=== PATIENT | female | born 1935 | race Caucasian/White ===

== ENCOUNTER 2020-11-27 07:50 | Inpatient (IN) ==
[2020-11-27] MEDS ORDERED: 0.9 % SODIUM CHLORIDE 1,000 ML IV ONE (10:32)
[2020-11-27] MEDS ORDERED: LACTATED RINGERS 1,000 ML IV ONE (10:59)
--- NOTE | 2020-11-27 11:05 | Emergency Department Note ---
HPI General Chief complaint: Fall Stated complaint: low back pain, fall 5 days ago, dysuria Time Seen by Provider: 11/27/20 07:56 Source: patient and EMS Mode of arrival: EMS Limitations: no limitations History of Present Illness HPI Narrative: Narrative: Patient is a pleasant 85-year-old female who presents complaint of low back pain and dysuria. She was seen 2 to 3 weeks ago for a fall and had noted multiple ezra mbar compression fractures. She noted that she was out in the yard was trying to pull the hose to water the lawn and she stepped on an irregularity on the ground and did fall again a few days ago. She denied any head injury. She is complaint of pain down in the low back sacrum region. She also has some discomfort with urination. She further relates that in the past 5 days she has been with decreased appetite and has not had very much in the way to eat. She notes it is more difficult for her getting up and about and has chronic joint achiness in her legs. She has not had any fever cough. She has not noted any definite blood in the urine. Degree of discomfort is reported as moderate. Worse with movement. Worse with urination Related Data Home Medications Medication Instructions Recorded Confirmed cholecalciferol (vitamin D3) 1,000 mg PO QDAY 11/19/18 11/27/20 omeprazole magnesium 20 mg 20 mg PO QDAY PRN 10/11/20 11/27/20 tablet,delayed release brimonidine 1 drp OPHTHALMIC (EYE) BID 11/27/20 11/27/20 calcium 1,200 mg PO QDAY 11/27/20 11/27/20 latanoprost 1 drp OPHTHALMIC (EYE) QDAY 11/27/20 11/27/20 lisinopril 40 mg PO DAILY 11/27/20 11/27/20 mirtazapine 7.5 mg PO QHS 11/27/20 11/27/20 timolol maleate 1 drp OPHTHALMIC (EYE) BID 11/27/20 11/27/20 Allergies Allergy/AdvReac Type Severity Reaction Status Date / Time nitrofurantoin Allergy Mild RASH Verified 11/27/20 19:20 [From MACROBID] Sulfa (Sulfonamide Allergy Unknown UNKNOWN Verified 11/27/20 19:20 Antibiotics) [SULFA (SULFONAMIDE ANTIBIOTICS)] Review of Systems ROS ROS Narrative: Narrative: A 10 system review of systems was performed and found to be negative except as outlined above. [facility] Narrative Patient History Narrative: Narrative: Medical/Surgical/Family History All Active Problems (Updated 11/28/20 @ 09:10 by Sterling Melendez MD) Compression fracture of body of thoracic vertebra (Acute) Compression fracture of lumbar vertebrae, non-traumatic (Acute) Closed pelvic fracture (Acute) CAD (coronary artery disease) (Acute) Hypertension (Acute) Dysphasia (Acute) Immunization deficiency (Acute) Urinary tract infection (Acute) Inferior pubic ramus fracture (Acute) Costochondral chest pain (Chronic) Costochondral joint sprain (Chronic) Closed left hip fracture (Chronic) Upper extremity weakness (Chronic) Scapular dyskinesis (Chronic) Rib fracture (Chronic) Acute cystitis (Chronic) Carotid bruit (Chronic) Chest wall contusion (Chronic) Essential (primary) hypertension (Chronic) GERD without esophagitis (Chronic) Glaucoma (Chronic) Hyperlipidemia (Chronic) 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) Osteoporosis (Chronic) Compression fracture of lumbar vertebra (Chronic) Allergic rhinitis (Chronic) Aortic valve stenosis (Chronic) Aortic valve regurgitation (Chronic) Bladder infection (Chronic) Pleural effusion (Chronic) Urinary frequency (Chronic) Medical History Acute cystitis Allergic rhinitis Aortic valve regurgitation Aortic valve stenosis Bladder infection CAD (coronary artery disease) Carotid bruit Chest wall contusion Compression fracture of lumbar vertebra Dysphasia Essential (primary) hypertension GERD without esophagitis Glaucoma Hyperlipidemia Hypertension Immunization deficiency Inferior pubic ramus fracture Macular degeneration of both eyes Nonrheumatic aortic valve insufficiency Osteoporosis Pleural effusion Urinary tract infection Surgical History History of appendectomy History of bladder surgery History of cataract surgery History of colonoscopy History of esophagogastroduodenoscopy (EGD) History of hysterectomy Family History Brother Alcoholism Son Alcoholism Son Alcoholism Mother , age 85 Heart disease Sister Myocardial infarction Father Social History Smoking Status: Former smoker Alcohol Intake Frequency: does not drink Exam Narrative Narrative: Narrative: General: Thin frail appearing elderly woman who is pleasant and interactive. HEENT: NCAT, PERRL, Oral pharynx with dry mucus membranes. No pharyngeal erythema. No conjunctival pallor Neck: Supple, No lymphadenopathy Chest: Stable, increased thoracic kyphosis Heart: Regular rate and rhythm without murmur Lungs: Clear to auscultation bilaterally Abdomen: Soft, nondistended, nontender, scaphoid. There is right suprapubic tenderness to palpation. : No bladder distention Back: Evidence of prior compression fractures with the kyphosis but also some areas of step-off related likely to prior fractures. She has no midline spine t enderness to palpation., No CVA tenderness to palpation. Skin: No rash or lesion Extremity: Neuro of the hands consistent with arthritis without focal area of injury. She is with some likely chronic arthritis in the left knee but is able to mobilize it appropriately. She is lying with her left hip somewhat internally rotated but demonstrates appropriate movement without discomfort. Pelvis is noted with some bruising over the right pubis area and likely some dependent drainage of ecchymotic fluid into the right labia area without evidence of direct trauma to this area. Neurologic: Moves all extremities in appropriate coordinated fashion. No focal neurologic deficit. General Limitations: no limitations Course Vital Signs Vital signs: Vital Signs Temperature 97.5 F 11/27/20 07:51 Pulse Rate 68 11/27/20 07:51 Respiratory Rate 20 11/27/20 07:51 Blood Pressure 100/69 11/27/20 07:51 Pulse Oximetry (%) 95 11/27/20 07:51 Temperature 98.0 F 11/28/20 07:19 Pulse Rate 74 11/28/20 07:19 Respiratory Rate 16 11/28/20 07:19 Blood Pressure 126/68 11/28/20 07:19 Pulse Oximetry (%) 95 11/28/20 07:19 [facility] Narrative Medical decision making narrative: Narrative: Patient is with pelvis pain as well as the previously noted spine fractures. CT of the pelvis today unfortunately did show further pelvic fractures involving the right superior and and inferior pubic ramus consistent with her noted bruising on exam. Patient is with deconditioning as well as poor p.o. fluid intake. She was with noted hyponatremia. I feel that she is in need of further rehabilitation care to avoid further falls and for mobilization after her pelvis fracture. I have consulted the hospitalist service who is currently agreed for further admission and care of patient. Lab Data Result diagrams: 11/27/20 10:24 11/28/20 05:43 Labs: Lab Results 11/27/20 11/27/20 11/27/20 Range/Units 10:24 10:24 10:24 WBC 8.8 (4.5-11.0) K/mcL RBC 3.56 L (4.00-5.20) M/mcL Hgb 11.4 L (12.0-15.0) g/dL Hct 32.1 L (36.0-48.0) % POC Hct (36-48) % MCV 90.2 (80.0-100.0) fL MCH 32.0 (26.0-34.0) pg MCHC 35.5 (31.0-36.0) g/dL RDW 12.5 (11.5-14.5) % Plt Count 281 (140-440) K/mcL MPV 10.2 (7.4-10.4) fL Neut % (Auto) 64.9 (38.0-78.0) % Lymph % (Auto) 20.6 (15.0-49.0) % Norton % (Auto) 13.7 H (1.0-12.0) % Eos % (Auto) 0.6 (0.0-7.0) % Baso % (Auto) 0.2 (0.0-2.0) % Lymph # (Auto) 1.80 (1.50-4.80) K/mcL Norton # (Auto) 1.20 H (0.10-0.90) K/mcL Eos # (Auto) 0.05 (0.00-0.70) K/mcL Baso # (Auto) 0.02 (0.00-0.20) K/mcL Absolute Neutrophils 5.68 (1.80-8.00) K/mcL VBG Lactic Acid (0.5-2.0) mmol/L POC Sodium (133-145) mEq/L Sodium 124 L (133-145) mmol/L POC Potassium (3.3-5.1) mEql/L Potassium 4.0 (3.3-5.1) mmol/L POC Chloride (96-108) mEq/L Chloride 91 L (96-108) mmol/L Carbon Dioxide 20 L (22-30) mmol/L POC Total CO2 (22-30) mmol/L Anion Gap 13.0 (8.0-16.0) POC BUN (6-20) mg/dL BUN 18 (8-23) mg/dL Creatinine 0.6 (0.6-1.1) mg/dL POC Creatinine (0.6-1.2) mg/dL GFR Calculation 83 Glucose 84 (70-105) mg/dL POC Glucose (70-105) mg/dL Osmolality (280-300) mOSM/kg Uric Acid (2.5-8.0) mg/dL Calcium 8.9 (8.6-10.4) mg/dL POC WB Ioniz Calcium (1.16-1.32) mmEq/L Total Bilirubin 0.9 (0.1-1.0) mg/dL AST 20 (<32) U/L ALT 9 (<40) U/L Alkaline Phosphatase 137 H (39-117) U/L Troponin T 0.03 H (<0.03) ng/mL Total Protein 5.9 (5.9-8.4) gm/dL Albumin 3.3 (3.2-5.2) gm/dL Globulin 2.6 (2.2-3.7) gm/dL Albumin/Globulin Ratio 1.3 (1.0-2.3) Lipase 24 (7-60) U/L Urine Color Urine Appearance (Clear) Urine pH (5.0-9.0) Ur Specific [place] (1.000-1.035) Urine Protein (Negative) mg/dL Urine Glucose (UA) (Negative) mg/dL Urine Ketones (Negative) mg/dL Urine Occult Blood (Negative) mg/dL Urine Nitrate (Negative) Urine Bilirubin (Negative) mg/dL Urine Urobilinogen mg/dL Ur Leukocyte Esterase (Negative) /ug Urine RBC (0-3) /hpf Urine WBC (0-4) /hpf Ur Squamous Epith Cells (0-4) /hpf Amorphous Crystals (None) /hpf Urine Bacteria (0) /hpf Ur Culture Indicated? Urine Osmolality (80-1000) mOSM/kg Ur Random Creatinine (28.0-217.0) mg/dL Ur Random Sodium mmol/L 11/27/20 11/27/20 11/27/20 Range/Units 10:24 11:21 12:05 WBC (4.5-11.0) K/mcL RBC (4.00-5.20) M/mcL Hgb (12.0-15.0) g/dL Hct (36.0-48.0) % POC Hct (36-48) % MCV (80.0-100.0) fL MCH (26.0-34.0) pg MCHC (31.0-36.0) g/dL RDW (11.5-14.5) % Plt Count (140-440) K/mcL MPV (7.4-10.4) fL Neut % (Auto) (38.0-78.0) % Lymph % (Auto) (15.0-49.0) % Norton % (Auto) (1.0-12.0) % Eos % (Auto) (0.0-7.0) % Baso % (Auto) (0.0-2.0) % Lymph # (Auto) (1.50-4.80) K/mcL Norton # (Auto) (0.10-0.90) K/mcL Eos # (Auto) (0.00-0.70) K/mcL Baso # (Auto) (0.00-0.20) K/mcL Absolute Neutrophils (1.80-8.00) K/mcL VBG Lactic Acid 0.9 (0.5-2.0) mmol/L POC Sodium (133-145) mEq/L Sodium (133-145) mmol/L POC Potassium (3.3-5.1) mEql/L Potassium (3.3-5.1) mmol/L POC Chloride (96-108) mEq/L Chloride (96-108) mmol/L Carbon Dioxide (22-30) mmol/L POC Total CO2 (22-30) mmol/L Anion Gap (8.0-16.0) POC BUN (6-20) mg/dL BUN (8-23) mg/dL Creatinine (0.6-1.1) mg/dL POC Creatinine (0.6-1.2) mg/dL GFR Calculation Glucose (70-105) mg/dL POC Glucose (70-105) mg/dL Osmolality 267 L (280-300) mOSM/kg Uric Acid 3.5 (2.5-8.0) mg/dL Calcium (8.6-10.4) mg/dL POC WB Ioniz Calcium (1.16-1.32) mmEq/L Total Bilirubin (0.1-1.0) mg/dL AST (<32) U/L ALT (<40) U/L Alkaline Phosphatase (39-117) U/L Troponin T (<0.03) ng/mL Total Protein (5.9-8.4) gm/dL Albumin (3.2-5.2) gm/dL Globulin (2.2-3.7) gm/dL Albumin/Globulin Ratio (1.0-2.3) Lipase (7-60) U/L Urine Color Yellow Urine Appearance Hazy A (Clear) Urine pH 6.0 (5.0-9.0) Ur Specific [place] 1.005 (1.000-1.035) Urine Protein Negative (Negative) mg/dL Urine Glucose (UA) Negative (Negative) mg/dL Urine Ketones Negative (Negative) mg/dL Urine Occult Blood 0.03 (Negative) mg/dL Urine Nitrate Negative (Negative) Urine Bilirubin Negative (Negative) mg/dL Urine Urobilinogen Negative mg/dL Ur Leukocyte Esterase 25 A (Negative) /ug Urine RBC 2 (0-3) /hpf Urine WBC 4 (0-4) /hpf Ur Squamous Epith Cells 0 (0-4) /hpf Amorphous Crystals Few A (None) /hpf Urine Bacteria Few A (0) /hpf Ur Culture Indicated? Yes Urine Osmolality (80-1000) mOSM/kg Ur Random Creatinine (28.0-217.0) mg/dL Ur Random Sodium mmol/L 11/27/20 11/27/20 11/27/20 Range/Units 12:05 12:05 12:05 WBC (4.5-11.0) K/mcL RBC (4.00-5.20) M/mcL Hgb (12.0-15.0) g/dL Hct (36.0-48.0) % POC Hct (36-48) % MCV (80.0-100.0) fL MCH (26.0-34.0) pg MCHC (31.0-36.0) g/dL RDW (11.5-14.5) % Plt Count (140-440) K/mcL MPV (7.4-10.4) fL Neut % (Auto) (38.0-78.0) % Lymph % (Auto) (15.0-49.0) % Norton % (Auto) (1.0-12.0) % Eos % (Auto) (0.0-7.0) % Baso % (Auto) (0.0-2.0) % Lymph # (Auto) (1.50-4.80) K/mcL Norton # (Auto) (0.10-0.90) K/mcL Eos # (Auto) (0.00-0.70) K/mcL Baso # (Auto) (0.00-0.20) K/mcL Absolute Neutrophils (1.80-8.00) K/mcL VBG Lactic Acid (0.5-2.0) mmol/L POC Sodium (133-145) mEq/L Sodium (133-145) mmol/L POC Potassium (3.3-5.1) mEql/L Potassium (3.3-5.1) mmol/L POC Chloride (96-108) mEq/L Chloride (96-108) mmol/L Carbon Dioxide (22-30) mmol/L POC Total CO2 (22-30) mmol/L Anion Gap (8.0-16.0) POC BUN (6-20) mg/dL BUN (8-23) mg/dL Creatinine (0.6-1.1) mg/dL POC Creatinine (0.6-1.2) mg/dL GFR Calculation Glucose (70-105) mg/dL POC Glucose (70-105) mg/dL Osmolality (280-300) mOSM/kg Uric Acid (2.5-8.0) mg/dL Calcium (8.6-10.4) mg/dL POC WB Ioniz Calcium (1.16-1.32) mmEq/L Total Bilirubin (0.1-1.0) mg/dL AST (<32) U/L ALT (<40) U/L Alkaline Phosphatase (39-117) U/L Troponin T (<0.03) ng/mL Total Protein (5.9-8.4) gm/dL Albumin (3.2-5.2) gm/dL Globulin (2.2-3.7) gm/dL Albumin/Globulin Ratio (1.0-2.3) Lipase (7-60) U/L Urine Color Urine Appearance (Clear) Urine pH (5.0-9.0) Ur Specific [place] (1.000-1.035) Urine Protein (Negative) mg/dL Urine Glucose (UA) (Negative) mg/dL Urine Ketones (Negative) mg/dL Urine Occult Blood (Negative) mg/dL Urine Nitrate (Negative) Urine Bilirubin (Negative) mg/dL Urine Urobilinogen mg/dL Ur Leukocyte Esterase (Negative) /ug Urine RBC (0-3) /hpf Urine WBC (0-4) /hpf Ur Squamous Epith Cells (0-4) /hpf Amorphous Crystals (None) /hpf Urine Bacteria (0) /hpf Ur Culture Indicated? Urine Osmolality 182 (80-1000) mOSM/kg Ur Random Creatinine 23.0 L (28.0-217.0) mg/dL Ur Random Sodium 12 mmol/L 11/27/20 11/27/20 Range/Units 13:51 17:06 WBC (4.5-11.0) K/mcL RBC (4.00-5.20) M/mcL Hgb (12.0-15.0) g/dL Hct (36.0-48.0) % POC Hct 33 L (36-48) % MCV (80.0-100.0) fL MCH (26.0-34.0) pg MCHC (31.0-36.0) g/dL RDW (11.5-14.5) % Plt Count (140-440) K/mcL MPV (7.4-10.4) fL Neut % (Auto) (38.0-78.0) % Lymph % (Auto) (15.0-49.0) % Norton % (Auto) (1.0-12.0) % Eos % (Auto) (0.0-7.0) % Baso % (Auto) (0.0-2.0) % Lymph # (Auto) (1.50-4.80) K/mcL Norton # (Auto) (0.10-0.90) K/mcL Eos # (Auto) (0.00-0.70) K/mcL Baso # (Auto) (0.00-0.20) K/mcL Absolute Neutrophils (1.80-8.00) K/mcL VBG Lactic Acid (0.5-2.0) mmol/L POC Sodium 131 L (133-145) mEq/L Sodium 127 L (133-145) mmol/L POC Potassium 3.6 (3.3-5.1) mEql/L Potassium 3.6 (3.3-5.1) mmol/L POC Chloride 99 (96-108) mEq/L Chloride 97 (96-108) mmol/L Carbon Dioxide 22 (22-30) mmol/L POC Total CO2 21 L (22-30) mmol/L Anion Gap 8.0 (8.0-16.0) POC BUN 14 (6-20) mg/dL BUN 14 (8-23) mg/dL Creatinine 0.5 L (0.6-1.1) mg/dL POC Creatinine 0.5 L (0.6-1.2) mg/dL GFR Calculation 88 Glucose 82 (70-105) mg/dL POC Glucose 84 (70-105) mg/dL Osmolality (280-300) mOSM/kg Uric Acid (2.5-8.0) mg/dL Calcium 8.6 (8.6-10.4) mg/dL POC WB Ioniz Calcium 1.20 (1.16-1.32) mmEq/L Total Bilirubin (0.1-1.0) mg/dL AST (<32) U/L ALT (<40) U/L Alkaline Phosphatase (39-117) U/L Troponin T 0.03 H (<0.03) ng/mL Total Protein (5.9-8.4) gm/dL Albumin (3.2-5.2) gm/dL Globulin (2.2-3.7) gm/dL Albumin/Globulin Ratio (1.0-2.3) Lipase (7-60) U/L Urine Color Urine Appearance (Clear) Urine pH (5.0-9.0) Ur Specific [place] (1.000-1.035) Urine Protein (Negative) mg/dL Urine Glucose (UA) (Negative) mg/dL Urine Ketones (Negative) mg/dL Urine Occult Blood (Negative) mg/dL Urine Nitrate (Negative) Urine Bilirubin (Negative) mg/dL Urine Urobilinogen mg/dL Ur Leukocyte Esterase (Negative) /ug Urine RBC (0-3) /hpf Urine WBC (0-4) /hpf Ur Squamous Epith Cells (0-4) /hpf Amorphous Crystals (None) /hpf Urine Bacteria (0) /hpf Ur Culture Indicated? Urine Osmolality (80-1000) mOSM/kg Ur Random Creatinine (28.0-217.0) mg/dL Ur Random Sodium mmol/L ED POC Tests ED POC Tests: MARII - SARS Antigen Negative Discharge Plan Patient/Caregiver Discharge Instructions Pt seen by PERSONNEL GENERALIST MANAGER/PA only: No Clinical Impression: Closed pelvic fracture Patient Disposition: Xfer As Outpt/Obs ([facility]) Condition: Fair Discharge Date/Time: 11/27/20 17:40
[2020-11-27 11:55] LABS: ALT/SGPT 9 U/L (<40); AST/SGOT 20 U/L (<32); Albumin 3.3 gm/dL (3.2-5.2); Albumin/Globulin Ratio 1.3 (1.0-2.3); Alkaline Phosphatase 137 U/L (39-117); Bilirubin,Total 0.9 mg/dL (0.1-1.0); Blood Urea Nitrogen 18 mg/dL (8-23); Calcium 8.9 mg/dL (8.6-10.4); Carbon Dioxide 20 mmol/L (22-30); Chloride 91 mmol/L (96-108); Globulin 2.6 gm/dL (2.2-3.7); Glomerular Filtration Rate 83; Glucose 84 mg/dL (70-105)
[2020-11-27 11:57] LABS: Basophils # (Auto) 0.02 K/mcL (0.00-0.20); Basophils % (Auto) 0.2 % (0.0-2.0); Eosinophils # (Auto) 0.05 K/mcL (0.00-0.70); Eosinophils % (Auto) 0.6 % (0.0-7.0); Hematocrit 32.1 % (36.0-48.0); Hemoglobin 11.4 g/dL (12.0-15.0); Lymphocytes % (Auto) 20.6 % (15.0-49.0); Mean Cell Volume 90.2 fL (80.0-100.0); Mean Corpuscular HGB Conc 35.5 g/dL (31.0-36.0); Mean Platelet Volume 10.2 fL (7.4-10.4); Monocytes % (Auto) 13.7 % (1.0-12.0); Neutrophils % (Auto) 64.9 % (38.0-78.0); Platelet Count 281 K/mcL (140-440); RBC 3.56 M/mcL (4.00-5.20); Red Cell Distribution Width 12.5 % (11.5-14.5); WBC 8.8 K/mcL (4.5-11.0)
--- NOTE | 2020-11-27 12:13 | Cat Scan Report ---
CLINICAL INFORMATION: Progressive back pain. The patient fell 5 days prior. Dysuria COMPARISON: Axial and sagittal reformatted images of the lumbar spine from a abdomen and pelvic CT 1.5 years ago 06/01/2019. TECHNIQUE: 0.625 mm helical slices were obtained from the mid T12 through mid S2 vertebral bodies. Following reconstruction, 2.5 mm coronal, sagittal, and axial reformations (angle to the disc spaces) were processed. Exam was reviewed at bone and soft tissue windows.The exam was performed using radiation dose optimization techniques including, but not limited to, automated exposure control, adjustment of the mA and/or kV according to patient size and use of iterative reconstruction technique. FINDINGS: Mild T11, severe T12, moderate L1 L5 compression fractures are chronic unchanged. No acute fractures appreciated. Grade 1 L5-S1 spondylolisthesis with 8 mm of L5 anterior subluxation due to degenerative facet disease is stable. Approximately 5 mm T12 retrolisthesis also noted. Solid fusion of the left L3-4 and subtotal fusion of the right L3-4 facet noted. Moderate degenerative facet disease L3-4 L4-5 and L5-S1. Soft tissues significant for marked urinary bladder distention. At T11-T12, T12-L1, L1-2, L2-3 and L3-4, there is minimal broad disc protrusions which only minimally impinge the anterior thecal sac. At L4-5, moderate broad disc protrusion and mild facet arthropathy result in mild central canal and IV foraminal narrowing. No definite root impingement. At L5-S1, large broad disc protrusion, grade 1 spondylolisthesis and facet arthropathy result in severe bilateral IV foraminal narrowing. This is unchanged since 2019. IMPRESSION: 1. Chronic mild T11, severe T12, moderate L1 and moderate L5 compression fractures-stable. No acute fractures 2. L5-S1: Grade 1 spondylolisthesis dueto degenerative facet disease, large broad disc protrusion and facet arthropathy resulting in moderate central canal and severe bilateral IV foraminal narrowing. There is impingement of the exiting L5 nerve roots-no change 3. Marked urinary bladder distention Interpreted and Authenticated by: Clay Marquez 11/27/20
--- NOTE | 2020-11-27 12:28 | Cat Scan Report ---
CLINICAL INFORMATION: Trauma COMPARISON: Abdomen and pelvic CT 11/29/2020 and 06/01/2019. TECHNIQUE: 0.625 mm helical slices were obtained from the mid L4 through the subtrochanteric regions. Following reconstruction, 2.5 mm sagittal, coronal and axial reformations were processed. The exam was reviewed in bone and soft tissue windows. The exam was performed using radiation dose optimization techniques including, but not limited to, automated exposure control, adjustment of mA and/or kV according to patient size and use of iterative reconstruction technique. FINDINGS: Bone windows show nondisplaced oblique fracture of the lateral right pubic ramus and a comminuted minimally displaced fracture of the medial right pubic ramus extending into the pubic symphysis. There is also a mildly displaced oblique fracture of the right inferior pubic ramus. A healing fracture of the left intervertebral foramen is also noted which is nondisplaced.. Gamma nail transfixes an old left intertrochanteric fracture which is solidly unified with exception of a tip of the greater trochanter which is subtotally unified. Both SI and hip joints normal with alignment without arthritic change. There is mild edema in the right obturator musculature adjacent to the pubic fractures compatible posttraumatic contusion. Urinary bladder is unremarkable. Hysterectomy changes noted. Visualized small large bowel are normal. There is no free air or free fluid. IMPRESSION: 1. Nondisplaced fracture lateral right periareolar pubic ramus, minimally displaced comminuted fracture medial right inferior pubic ramus extending to the pubic symphysis. Comminuted mildly displaced fracture inferior right pubic ramus. Healing fracture inferior left pubic ramus. Mild contusion in the adjacent pelvic musculature through the obturator muscle. 2. ORIF old left intertrochanteric fracture which is totally unified exception of a subtotally unified greater trochanteric fragment. 3. Moderate urinary bladder distention. Interpreted and Authenticated by: Clay Marquez 11/27/20
[2020-11-27 13:19] LABS: Appearance,Urine HAZY (Clear); Bacteria,Urine FEW /hpf (0); Bilirubin,Urine Negative (Negative); Color,Urine YELLOW; Culture Indicated,Urine Yes; Glucose,Urine (UA) Negative (Negative); Ketones,Urine Negative (Negative); Leukocyte Esterase,Urine 25 /ug (Negative); Nitrate,Urine Negative (Negative); Protein,Urine Negative (Negative); Specific Gravity,Urine 1.005 (1.000-1.035); Urine Amorphous Crystals FEW /hpf; Urine Blood 0.03 mg/dL (Negative); Urine RBC 2 /hpf (0-3); Urine Squamous Epithelial Cell 0 /hpf (0-4); Urine WBC 4 /hpf (0-4); Urobilinogen,Urine Negative
--- NOTE | 2020-11-27 16:20 | Internal Med History&Physical ---
HPI History of Present Illness Patient information: Note initiated : 11/27/20 at 4:15 pm Service Date, if different from initiated Date: [] Patient: Rebeca Mcknight a 85 y/o F admitted on for Low Back Pain, Fall 5 Days Ago, Dysuria. Chief Complaint: [] History of present illness: Ms. Mcknight is a 85 year old F Who fell about 3 weeks ago suffering a spinal compression fracture. And then about 5 days ago while working in her yard the hose she fell again. Since falling she has had some increased weakness. increased pain in her back and pelvis her son noticed that she did not look comfortable and did not seem to be doing well and recommended to go in the ED. In the ED she was evaluated and had a pelvic CT which showed several rami fractures. Lumbar spine with compression fractures old. Patient states she had dysuria prior to her fall 5 days ago but has not had any that since then. UA in the ED is pretty bland and unimpressive. No chest pain shortness of breath. Her sodium was found to be 124. She had a urinary retention in ED but sub sequently was able to urinate on her own. Review of Systems: Pertinent positives as above. Denies headache/fever/chills/nausea/vomiting/chest or abdominal pain/cough/dyspnea/diarrhea. Remaining 10 point review of system reviewed negative PFSH PFSH All Active Problems (Updated 11/11/20 @ 12:54 by Damian Dolan MD) Compression fracture of body of thoracic vertebra (Acute) Compression fracture of lumbar vertebrae, non-traumatic (Acute) CAD (coronary artery disease) (Acute) Hypertension (Acute) Dysphasia (Acute) Immunization deficiency (Acute) Urinary tract infection (Acute) Inferior pubic ramus fracture (Acute) Costochondral chest pain (Chronic) Costochondral joint sprain (Chronic) Closed left hip fracture (Chronic) Upper extremity weakness (Chronic) Scapular dyskinesis (Chronic) Rib fracture (Chronic) Acute cystitis (Chronic) Carotid bruit (Chronic) Chest wall contusion (Chronic) Essential (primary) hypertension (Chronic) GERD without esophagitis (Chronic) Glaucoma (Chronic) Hyperlipidemia (Chronic) 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) Osteoporosis (Chronic) Compression fracture of lumbar vertebra (Chronic) Allergic rhinitis (Chronic) Aortic valve stenosis (Chronic) Aortic valve regurgitation (Chronic) Bladder infection (Chronic) Pleural effusion (Chronic) Urinary frequency (Chronic) Medical History Acute cystitis Allergic rhinitis Aortic valve regurgitation Aortic valve stenosis Bladder infection CAD (coronary artery disease) Carotid bruit Chest wall contusion Compression fracture of lumbar vertebra Dysphasia Essential (primary) hypertension GERD without esophagitis Glaucoma Hyperlipidemia Hypertension Immunization deficiency Inferior pubic ramus fracture Macular degeneration of both eyes Nonrheumatic aortic valve insufficiency Osteoporosis Pleural effusion Urinary tract infection Surgical History History of appendectomy History of bladder surgery History of cataract surgery History of colonoscopy History of esophagogastroduodenoscopy (EGD) History of hysterectomy Family History Brother Alcoholism Son Alcoholism Son Alcoholism Mother , age 85 Heart disease Sister Myocardial infarction Father Social History alcohol intake frequency: does not drink MEDS/ALLERGIES Home Medications and Allergies Home Medications Medication Instructions Recorded Confirmed Type cholecalciferol (vitamin D3) 1,000 mg PO QDAY 11/19/18 11/27/20 History omeprazole magnesium 20 mg 20 mg PO QDAY PRN 10/11/20 11/27/20 History tablet,delayed release calcium 1,200 mg PO QDAY 11/27/20 11/27/20 History latanoprost 1 drp OPHTHALMIC (EYE) QDAY 11/27/20 11/27/20 History lisinopril 40 mg PO DAILY 11/27/20 11/27/20 History mirtazapine 7.5 mg PO QHS 11/27/20 11/27/20 History timolol maleate 1 drp OPHTHALMIC (EYE) QDAY 11/27/20 11/27/20 History Allergies Allergy/AdvReac Type Severity Reaction Status Date / Time nitrofurantoin Allergy Unknown RASH Verified 11/27/20 07:55 [From MACROBID] Sulfa (Sulfonamide Allergy Unknown UNKNOWN Verified 11/27/20 07:55 Antibiotics) [SULFA (SULFONAMIDE ANTIBIOTICS)] EXAM Constitutional Vitals: Temp Pulse Resp BP Pulse Ox 97.5 F 70 20 130/90 94 11/27/20 07:51 11/27/20 14:31 11/27/20 07:51 11/27/20 14:31 11/27/20 14:31 Exam: General: Alert, Awake, No acute Distress, frail Eyes/N/T: EOMI, PERRL, dry MM Head/Neck: neck supple, normocephalic atraumatic CV: RRR, No murmurs, normal s1/s2 Pulm: Clear b/l, no wheezing/rhonchi/rales Abd: soft, nontender, +BS x4 Ext: no clubbing/cyanosis/edema Neuro: Alert, no focal deficits, moves all extremities, CN 2-12 grossly intact, symmetrical strength b/l upper/lower, sensations intact b/l upper/lower Skin: warm/dry DATA Data Completed and Pending Labs: Labs from last 24 hours 11/27/20 11/27/20 11/27/20 13:51 12:05 11:21 WBC RBC Hgb Hct MCV MCH MCHC RDW Plt Count MPV Neut % (Auto) Lymph % (Auto) [place] % (Auto) Eos % (Auto) Baso % (Auto) Lymph # (Auto) [place] # (Auto) Eos # (Auto) Baso # (Auto) Absolute Neutrophils VBG Lactic Acid 0.9 Sodium Potassium Chloride Carbon Dioxide Anion Gap BUN Creatinine GFR Calculation Glucose Calcium Total Bilirubin AST ALT Alkaline Phosphatase Troponin T 0.03 H Total Protein Albumin Globulin Albumin/Globulin Ratio Lipase Urine Color Yellow Urine Appearance Hazy A Urine pH 6.0 Ur Specific [place] 1.005 Urine Protein Negative Urine Glucose (UA) Negative Urine Ketones Negative Urine Occult Blood 0.03 Urine Nitrate Negative Urine Bilirubin Negative Urine Urobilinogen Negative Ur Leukocyte Esterase 25 A Urine RBC 2 Urine WBC 4 Ur Squamous Epith Cells 0 Amorphous Crystals Few A Urine Bacteria Few A Ur Culture Indicated? Yes 11/27/20 11/27/20 11/27/20 10:24 10:24 10:24 WBC 8.8 RBC 3.56 L Hgb 11.4 L Hct 32.1 L MCV 90.2 MCH 32.0 MCHC 35.5 RDW 12.5 Plt Count 281 MPV 10.2 Neut % (Auto) 64.9 Lymph % (Auto) 20.6 [place] % (Auto) 13.7 H Eos % (Auto) 0.6 Baso % (Auto) 0.2 Lymph # (Auto) 1.80 [place] # (Auto) 1.20 H Eos # (Auto) 0.05 Baso # (Auto) 0.02 Absolute Neutrophils 5.68 VBG Lactic Acid Sodium 124 L Potassium 4.0 Chloride 91 L Carbon Dioxide 20 L Anion Gap 13.0 BUN 18 Creatinine 0.6 GFR Calculation 83 Glucose 84 Calcium 8.9 Total Bilirubin 0.9 AST 20 ALT 9 Alkaline Phosphatase 137 H Troponin T 0.03 H Total Protein 5.9 Albumin 3.3 Globulin 2.6 Albumin/Globulin Ratio 1.3 Lipase 24 Urine Color Urine Appearance Urine pH Ur Specific [place] Urine Protein Urine Glucose (UA) Urine Ketones Urine Occult Blood Urine Nitrate Urine Bilirubin Urine Urobilinogen Ur Leukocyte Esterase Urine RBC Urine WBC Ur Squamous Epith Cells Amorphous Crystals Urine Bacteria Ur Culture Indicated? A/P Narrative A/P Narrative: A: *Hyponatremia: *Generalized weakness/deconditioning/falling: *Recent spinal compression fractures and acute pubic rami fracture: *HTN: *GERD: P: -hyponatremia w/u -NS ivf, f/u sodium -pain control -cont home ACEI - --pt/ot -CM for placement needs -ppx: lovenox/home ppi DNR Time Spent With Patient Time: Total time spent is greater than 50% in coordination of care (as documented) at patient's floor/unit and/or counseling patient:
[2020-11-27 17:17] LABS: POC Blood Urea Nitrogen 14 mg/dL (6-20); POC CO2 21 mmol/L (22-30); POC Chloride 99 mEq/L (96-108); POC Creatinine 0.5 mg/dL (0.6-1.2); POC Glucose, Random 84 mg/dL (70-105); POC Hematocrit 33 % (36-48); POC Potassium 3.6 mEql/L (3.3-5.1); POC Sodium 131 mEq/L (133-145)
[2020-11-27 17:23] LABS: Uric Acid 3.5 mg/dL (2.5-8.0)
[2020-11-27] MEDS ORDERED: HYDROcodone/APAP 5/325MG TABLET PO PRN (17:48)
[2020-11-27] MEDS ORDERED: IPRATROPIUM/ALBUTEROL 3 ML AMPUL.NEB NEB PRN (17:48)
[2020-11-27] MEDS ORDERED: 0.9 % SODIUM CHLORIDE 1,000 ML IV SCH (17:48)
[2020-11-27] MEDS ORDERED: MAGNESIUM SULFATE 2 GM/50 ML BAG IV PRN ×2 (17:48)
[2020-11-27] MEDS ORDERED: POLYETHYLENE GLYCOL 3350 17 GM PACKET PO PRN (17:48)
[2020-11-27] MEDS ORDERED: ACETAMINOPHEN 325 MG TABLET PO PRN (17:48)
[2020-11-27] MEDS ORDERED: ONDANSETRON 4 MG/2 ML VIAL IV PRN ×2 (17:48)
[2020-11-27] MEDS ORDERED: POTASSIUM CHLORIDE 20 MEQ TABLET PO PRN ×4 (17:48)
[2020-11-27] MEDS ORDERED: diphenhydrAMINE 25 MG CAPSULE PO PRN (17:48)
[2020-11-27] MEDS ORDERED: POTASSIUM CHLORIDE 40 MEQ in DEXTROSE 5% IN WATER 500 ML IV PRN ×2 (17:48)
[2020-11-27 17:57] LABS: Blood Urea Nitrogen 14 mg/dL (8-23); Calcium 8.6 mg/dL (8.6-10.4); Carbon Dioxide 22 mmol/L (22-30); Chloride 97 mmol/L (96-108); Glomerular Filtration Rate 88; Glucose 82 mg/dL (70-105)
[2020-11-27] MEDS ORDERED: OMEPRAZOLE 20 MG CAPSULE PO PRN (17:59)
[2020-11-27] MEDS ORDERED: MELATONIN 3 MG TABLET PO SCH (21:00)
--- NOTE | 2020-11-28 08:03 | Internal Med Progress Note ---
SUBJECTIVE Subjective Patient information: Note initiated : 11/28/20 at 7:59 am Service Date, if different from initiated Date: [] Patient: Rebeca Mcknight 85 y/o F admitted on 11/27/20 for Low Back Pain, Fall 5 Days Ago, Dysuria. Chief Complaint: [] Interval history: History of present illness: Ms. Mcknight is a 85 year old F Who fell about 3 weeks ago suffering a spinal compression fracture. And then about 5 days ago while working in her yard the hose she fell again. Since falling she has had some increased weakness. increased pain in her back and pelvis her son noticed that she did not look comfortable and did not seem to be doing well and recommended to go in the ED. In the ED she was evaluated and had a pelvic CT which showed several rami fractures. Lumbar spine with compression fractures old. Patient states she had dysuria prior to her fall 5 days ago but has not had any that since then. UA in the ED is pretty bland and unimpressive. No chest pain shortness of breath. Her sodium was found to be 124. She had a urinary retention in ED but subsequently was able to urinate on her own. 11/28 No overnight event or new complaints. Sodium improving. Review of Systems: denies headache/fever/chills/nausea/vomiting/chest or abdominal pain/cough/dyspnea/diarrhea. Otherwise see above. Constitutional Vitals: Vital Signs Temp Pulse Resp BP Pulse Ox 98.0 F 74 16 126/68 95 11/28/20 07:19 11/28/20 07:19 11/28/20 07:19 11/28/20 07:19 11/28/20 07:19 Period Temp Pulse Resp BP Sys/Feng Pulse Ox Last 24 Hr 97.5 F-98.6 F 41-74 14-20 79-161/51-105 90-100 Intake and Output 11/27/20 11/28/20 11/28/20 21:59 05:59 13:59 Intake Total 1120 480 Output Total 600 500 Balance 520 -20 Weight 47.174 kg Intake & Output: Intake & Output 11/27/20 11/28/20 11/28/20 21:59 05:59 13:59 Intake Total 1120 480 Output Total 600 500 Balance 520 -20 Weight 47.174 kg Intake: IV 1000 Sodium Chloride 0.9% 1,000 ml @ 0 Wide Open IV BOLUS ONE Rx#: [id number] Lactated Ringers 1,000 ml @ 1000 Wide Open IV BOLUS ONE Rx#: [id number] Oral 120 480 Output: Void Amount 600 500 Other: Meal Dinner Percent of Meal Consumed 75% Feeding Ability Independent Urine Appearance Clear Clear Urine Color Dark Yellow Straw Urine Odor Strong Exam: General: Alert, Awake, No acute Distress, frail Eyes/N/T: EOMI, Head/Neck: neck supple, CV: RRR, No murmurs, Pulm: Clear b/l, no wheezing/rhonchi/rales Abd: soft, nontender, +BS x4 Ext: no clubbing/cyanosis/edema Neuro: Alert, no focal deficits, moves all extremities, Skin: warm/dry OBJ DATA Labs CBC & Chem 7: 11/27/20 10:24 11/28/20 05:43 Labs: Abnormal Lab Results 11/27/20 11/27/20 11/27/20 17:06 13:51 12:05 RBC Hgb Hct POC Hct 33 L [place] % (Auto) [place] # (Auto) POC Sodium 131 L Sodium 127 L Chloride Carbon Dioxide POC Total CO2 21 L Creatinine 0.5 L POC Creatinine 0.5 L Osmolality Alkaline Phosphatase Troponin T 0.03 H Urine Appearance Ur Leukocyte Esterase Amorphous Crystals Urine Bacteria Ur Random Creatinine 23.0 L 11/27/20 11/27/20 11/27/20 12:05 10:24 10:24 RBC Hgb Hct POC Hct [place] % (Auto) [place] # (Auto) POC Sodium Sodium Chloride Carbon Dioxide POC Total CO2 Creatinine POC Creatinine Osmolality 267 L Alkaline Phosphatase Troponin T 0.03 H Urine Appearance Hazy A Ur Leukocyte Esterase 25 A Amorphous Crystals Few A Urine Bacteria Few A Ur Random Creatinine 11/27/20 11/27/20 10:24 10:24 RBC 3.56 L Hgb 11.4 L Hct 32.1 L POC Hct [place] % (Auto) 13.7 H [place] # (Auto) 1.20 H POC Sodium Sodium 124 L Chloride 91 L Carbon Dioxide 20 L POC Total CO2 Creatinine POC Creatinine Osmolality Alkaline Phosphatase 137 H Troponin T Urine Appearance Ur Leukocyte Esterase Amorphous Crystals Urine Bacteria Ur Random Creatinine Meds: Medications Acetaminophen (Acetaminophen 325 Mg Tablet) 650 mg PO Q4-6HP PRN; Protocol PRN Reason: Per Pain Protocol Hydrocodone Bitart/Acetaminophen (Hydrocodone/Apap 5/325mg Tablet) 1 tab PO Q4- 6HP PRN; Protocol PRN Reason: Per Pain Protocol Albuterol/Ipratropium (Ipratropium/Albuterol 3 Ml Ampul.Neb) 3 ml NEB Q4HP PRN PRN Reason: Shortness Of Breath Diphenhydramine HCl (Diphenhydramine 25 Mg Capsule) 25 mg PO HSP PRN PRN Reason: Insomnia Enoxaparin Sodium (Enoxaparin 30 Mg/0.3 Ml Syringe) 30 mg SQ DAILY [facility] Potassium Chloride 40 meq/ (Dextrose) 520 mls @ 130 mls/hr IV UD PRN PRN Reason: Potassium < 3 Magnesium Sulfate (Magnesium Sulfate) 2 gm in 50 mls @ 50 mls/hr IV UD PRN PRN Reason: Magnesium </= 1.6 Sodium Chloride (Sodium Chloride 0.9%) 1,000 mls @ 50 mls/hr IV .Q20H [facility] Stop: 11/28/20 13:47 Last Admin: 11/27/20 18:33 Dose: 50 mls/hr Documented by: Latanoprost (Latanoprost Ophth Drops 2.5ml Bottle) 1 gtt OU QDAY [facility] Lisinopril (Lisinopril 20 Mg Tablet) 40 mg PO DAILY [facility] Melatonin (Melatonin 3 Mg Tablet) 6 mg PO QHS [facility] Last Admin: 11/27/20 21:08 Dose: 6 mg Documented by: Omeprazole (Omeprazole 20 Mg Capsule) 20 mg PO DAILYP PRN PRN Reason: Acid Reflux Ondansetron HCl (Ondansetron 4 Mg/2 Ml Vial) 4 mg IV Q4HP PRN PRN Reason: Nausea And Vomiting Polyethylene Glycol (Polyethylene Glycol 3350 17 Gm Packet) 17 gm PO DAILYP PRN PRN Reason: Constipation Potassium Chloride (Potassium Chloride 20 Meq Tablet) 40 meq PO UD PRN PRN Reason: Potssium is 3-3.5 Potassium Chloride (Potassium Chloride 20 Meq Tablet) 40 meq PO UD PRN PRN Reason: Potassium < 3 Timolol Maleate (Timolol 0.5% Ophth Drops Bottle 5ml) 1 gtt OU QDAY KINJAL A/P Narrative A/P Narrative: A: *Hyponatremia: 2/2 volme depletion -improving with NS IVF *Generalized weakness/deconditioning/falling: *Recent spinal compression fractures and acute pubic rami fracture: *HTN: *GERD: P: -NS ivf, f/u sodium -pain control -cont home ACEI - -pt/ot -CM for placement needs -ppx: lovenox/home ppi DNR Time Spent With Patient Time: Total time spent is greater than 50% in coordination of care (as documented) at patient's floor/unit and/or counseling patient: QUALITY VTE Deep Vein Thrombosis/Pulmonary Embolism Present on Admission: No
[2020-11-28 08:19] LABS: ALT/SGPT 9 U/L (<40); AST/SGOT 16 U/L (<32); Albumin 3.1 gm/dL (3.2-5.2); Albumin/Globulin Ratio 1.5 (1.0-2.3); Alkaline Phosphatase 114 U/L (39-117); Bilirubin,Direct < 0.2 mg/dL (0-0.3); Bilirubin,Total 0.6 mg/dL (0.1-1.0); Blood Urea Nitrogen 12 mg/dL (8-23); Calcium 8.3 mg/dL (8.6-10.4); Carbon Dioxide 21 mmol/L (22-30); Chloride 103 mmol/L (96-108); Globulin 2.1 gm/dL (2.2-3.7); Glomerular Filtration Rate 88; Glucose 76 mg/dL (70-105); Lactate Dehydrogenase 211 U/L (135-225); Phosphorous 2.8 mg/dL (2.5-4.5); Triglycerides 55 mg/dL (<150); Uric Acid 3.7 mg/dL (2.5-8.0)
[2020-11-28] MEDS ORDERED: ENOXAPARIN 30 MG/0.3 ML SYRINGE SQ SCH (09:00)
[2020-11-28] MEDS ORDERED: LATANOPROST OPHTH DROPS 2.5ML BOTTLE OU SCH (09:00)
[2020-11-28] MEDS ORDERED: TIMOLOL 0.5% OPHTH DROPS BOTTLE 5ML OU SCH (09:00)
[2020-11-28] MEDS ORDERED: LISINOPRIL 20 MG TABLET PO SCH (09:00)
[2020-11-28] MEDS ORDERED: LEVOFLOXACIN 250 MG TABLET PO ONE (11:43)
--- NOTE | 2020-11-28 11:47 | Discharge Summary ---
Discharge Provider Provider Patient information: Note initiated : 11/28/20 at 11:41 am Service Date, if different from initiated Date: [] Patient: Rebeca Mcknight 85 y/o F admitted on 11/27/20 for Low Back Pain, Fall 5 Days Ago, Dysuria. Chief Complaint: [] Date of admission: 11/27/20 17:43 Discharge date: 11/28/20 Primary care physician: Alfredo Gutierrez M.D., F.A.A.F.P. Consults: 11/28/20 07:10 Consult to Physician [CONS] Routine Comment: Consulting Provider: Rayshawn Pozo Reason For Exam: Physician to Consult Discharge Meds Discharge Medications Home Medications cholecalciferol (vitamin D3) 1,000 mg PO QDAY 11/19/18 [History Confirmed 11/27/20 Last Taken 11/26/20 08:00] omeprazole magnesium 20 mg tablet,delayed release 20 mg PO QDAY PRN 10/11/20 [History Confirmed 11/27/20 Last Taken 11/21/20 08:00] brimonidine 1 drp OPHTHALMIC (EYE) BID 11/27/20 [History Confirmed 11/27/20 Last Taken 11/27/20 08:00] calcium 1,200 mg PO QDAY 11/27/20 [History Confirmed 11/27/20 Last Taken 11/26/20 08:00] latanoprost 1 drp OPHTHALMIC (EYE) QDAY 11/27/20 [History Confirmed 11/27/20 Last Taken 11/27/20 08:00] lisinopril 40 mg PO DAILY 11/27/20 [History Confirmed 11/27/20 Last Taken 11/27/20 08:00] mirtazapine 7.5 mg PO QHS 11/27/20 [History Confirmed 11/27/20 Last Taken 11/26/20 21:00] timolol maleate 1 drp OPHTHALMIC (EYE) BID 11/27/20 [History Confirmed 11/27/20 Last Taken 11/27/20 08:00] levofloxacin 250 mg PO Q24H #2 tab 11/28/20 [Rx Last Taken Unknown] COURSE Hospital Course Hospital course: Interval history: History of present illness: Ms. Mcknight is a 85 year old F Who fell about 3 weeks ago suffering a spinal compression fracture. And then about 5 days ago while working in her yard the hose she fell again. Since falling she has had some increased weakness. increased pain in her back and pelvis her son noticed that she did not look comfortable and did not seem to be doing well and recommended to go in the ED. In the ED she was evaluated and had a pelvic CT which showed several rami fractures. Lumbar spine with compression fractures old. Patient states she had dysuria prior to her fall 5 days ago but has not had any that since then. UA in the ED is pretty bland and unimpressive. No chest pain shortness of breath. Her sodium was found to be 124. She had a urinary retention in ED but subsequ ently was able to urinate on her own. 11/28 No overnight event or new complaints. Sodium improving. Patient responded quicker to treatment than expected. A: *Hyponatremia: 2/2 volme depletion -improving with NS IVF *Generalized weakness/deconditioning/falling: improving *Recent spinal compression fractures and acute pubic rami fracture: *HTN: *GERD: *UTI: Discharge diagnosis: But natremia UTI generalized weakness deconditioning following recent spina Secondary discharge diagnosis: Recent spinal pelvic fractures hypertension GERD Time Spent with Patient Time attestation: Total time spent providing and/or coordinating discharge services: Time spent: Greater than 30 minutes EXAM Constitutional Vitals: Temp Pulse Resp BP Pulse Ox 98.0 F 74 16 126/68 95 11/28/20 07:19 11/28/20 07:19 11/28/20 07:19 11/28/20 07:19 11/28/20 07:19 Discharge Data Data Completed and Pending Labs on day of discharge: Labs from last 24 hours 11/28/20 11/27/20 11/27/20 05:43 17:06 13:51 WBC RBC Hgb Hct POC Hct 33 L MCV MCH MCHC RDW Plt Count MPV Neut % (Auto) Lymph % (Auto) [place] % (Auto) Eos % (Auto) Baso % (Auto) Lymph # (Auto) [place] # (Auto) Eos # (Auto) Baso # (Auto) Absolute Neutrophils VBG Lactic Acid POC Sodium 131 L Sodium 131 L 127 L POC Potassium 3.6 Potassium 4.2 3.6 POC Chloride 99 Chloride 103 97 Carbon Dioxide 21 L 22 POC Total CO2 21 L Anion Gap 7.0 L 8.0 POC BUN 14 BUN 12 14 Creatinine 0.5 L 0.5 L POC Creatinine 0.5 L GFR Calculation 88 88 Glucose 76 82 POC Glucose 84 Osmolality Uric Acid 3.7 Calcium 8.3 L 8.6 POC WB Ioniz Calcium 1.20 Phosphorus 2.8 Magnesium 1.9 Total Bilirubin 0.6 Direct Bilirubin < 0.2 GGT 10 AST 16 ALT 9 Alkaline Phosphatase 114 Lactate Dehydrogenase 211 Troponin T 0.03 H Total Protein 5.2 L Albumin 3.1 L Globulin 2.1 L Albumin/Globulin Ratio 1.5 Triglycerides 55 Lipase Urine Color Urine Appearance Urine pH Ur Specific [place] Urine Protein Urine Glucose (UA) Urine Ketones Urine Occult Blood Urine Nitrate Urine Bilirubin Urine Urobilinogen Ur Leukocyte Esterase Urine RBC Urine WBC Ur Squamous Epith Cells Amorphous Crystals Urine Bacteria Ur Culture Indicated? Urine Osmolality Ur Random Creatinine Ur Random Sodium 11/27/20 11/27/20 11/27/20 12:05 12:05 12:05 WBC RBC Hgb Hct POC Hct MCV MCH MCHC RDW Plt Count MPV Neut % (Auto) Lymph % (Auto) [place] % (Auto) Eos % (Auto) Baso % (Auto) Lymph # (Auto) [place] # (Auto) Eos # (Auto) Baso # (Auto) Absolute Neutrophils VBG Lactic Acid POC Sodium Sodium POC Potassium Potassium POC Chloride Chloride Carbon Dioxide POC Total CO2 Anion Gap POC BUN BUN Creatinine POC Creatinine GFR Calculation Glucose POC Glucose Osmolality Uric Acid Calcium POC WB Ioniz Calcium Phosphorus Magnesium Total Bilirubin Direct Bilirubin GGT AST ALT Alkaline Phosphatase Lactate Dehydrogenase Troponin T Total Protein Albumin Globulin Albumin/Globulin Ratio Triglycerides Lipase Urine Color Urine Appearance Urine pH Ur Specific [place] Urine Protein Urine Glucose (UA) Urine Ketones Urine Occult Blood Urine Nitrate Urine Bilirubin Urine Urobilinogen Ur Leukocyte Esterase Urine RBC Urine WBC Ur Squamous Epith Cells Amorphous Crystals Urine Bacteria Ur Culture Indicated? Urine Osmolality 182 Ur Random Creatinine 23.0 L Ur Random Sodium 12 11/27/20 11/27/20 11/27/20 12:05 11:21 10:24 WBC RBC Hgb Hct POC Hct MCV MCH MCHC RDW Plt Count MPV Neut % (Auto) Lymph % (Auto) [place] % (Auto) Eos % (Auto) Baso % (Auto) Lymph # (Auto) [place] # (Auto) Eos # (Auto) Baso # (Auto) Absolute Neutrophils VBG Lactic Acid 0.9 POC Sodium Sodium POC Potassium Potassium POC Chloride Chloride Carbon Dioxide POC Total CO2 Anion Gap POC BUN BUN Creatinine POC Creatinine GFR Calculation Glucose POC Glucose Osmolality 267 L Uric Acid 3.5 Calcium POC WB Ioniz Calcium Phosphorus Magnesium Total Bilirubin Direct Bilirubin GGT AST ALT Alkaline Phosphatase Lactate Dehydrogenase Troponin T Total Protein Albumin Globulin Albumin/Globulin Ratio Triglycerides Lipase Urine Color Yellow Urine Appearance Hazy A Urine pH 6.0 Ur Specific [place] 1.005 Urine Protein Negative Urine Glucose (UA) Negative Urine Ketones Negative Urine Occult Blood 0.03 Urine Nitrate Negative Urine Bilirubin Negative Urine Urobilinogen Negative Ur Leukocyte Esterase 25 A Urine RBC 2 Urine WBC 4 Ur Squamous Epith Cells 0 Amorphous Crystals Few A Urine Bacteria Few A Ur Culture Indicated? Yes Urine Osmolality Ur Random Creatinine Ur Random Sodium 11/27/20 11/27/20 11/27/20 10:24 10:24 10:24 WBC 8.8 RBC 3.56 L Hgb 11.4 L Hct 32.1 L POC Hct MCV 90.2 MCH 32.0 MCHC 35.5 RDW 12.5 Plt Count 281 MPV 10.2 Neut % (Auto) 64.9 Lymph % (Auto) 20.6 [place] % (Auto) 13.7 H Eos % (Auto) 0.6 Baso % (Auto) 0.2 Lymph # (Auto) 1.80 [place] # (Auto) 1.20 H Eos # (Auto) 0.05 Baso # (Auto) 0.02 Absolute Neutrophils 5.68 VBG Lactic Acid POC Sodium Sodium 124 L POC Potassium Potassium 4.0 POC Chloride Chloride 91 L Carbon Dioxide 20 L POC Total CO2 Anion Gap 13.0 POC BUN BUN 18 Creatinine 0.6 POC Creatinine GFR Calculation 83 Glucose 84 POC Glucose Osmolality Uric Acid Calcium 8.9 POC WB Ioniz Calcium Phosphorus Magnesium Total Bilirubin 0.9 Direct Bilirubin GGT AST 20 ALT 9 Alkaline Phosphatase 137 H Lactate Dehydrogenase Troponin T 0.03 H Total Protein 5.9 Albumin 3.3 Globulin 2.6 Albumin/Globulin Ratio 1.3 Triglycerides Lipase 24 Urine Color Urine Appearance Urine pH Ur Specific [place] Urine Protein Urine Glucose (UA) Urine Ketones Urine Occult Blood Urine Nitrate Urine Bilirubin Urine Urobilinogen Ur Leukocyte Esterase Urine RBC Urine WBC Ur Squamous Epith Cells Amorphous Crystals Urine Bacteria Ur Culture Indicated? Urine Osmolality Ur Random Creatinine Ur Random Sodium Preliminary micro results at discharge 11/27/20 12:05 Urine Culture - Preliminary Urine - Clean Void Mid-Stream Gram negative bacillus Discharge Plan Patient/Caregiver Discharge Instructions Activity: increase activity as tolerated Diet: Regular Diet Prescriptions: New levofloxacin 250 mg tablet 250 mg PO Q24H Qty: 2 RF: 0 Continued omeprazole magnesium 20 mg tablet,delayed release (DR/EC) 20 mg PO QDAY PRN (Reason: Acid Reflux) RF: 0 latanoprost 0.005 % Drops 1 drp OPHTHALMIC (EYE) QDAY RF: 0 mirtazapine 7.5 mg Tablet 7.5 mg PO QHS RF: 0 timolol maleate 0.5 % Drops, Once Daily 1 drp OPHTHALMIC (EYE) BID RF: 0 calcium 1,200 MG 1,200 mg PO QDAY RF: 0 lisinopril 20 mg tablet 40 mg PO DAILY RF: 0 brimonidine 0.2 % Drops 1 drp OPHTHALMIC (EYE) BID RF: 0 cholecalciferol (vitamin D3) 1,000 mg PO QDAY RF: 0 Follow Up Plan Follow up with: Alfredo Gutierrez MD, FAAFP [Primary Care Provider] - Patient Disposition: Home Health Service Prognosis: Fair Overall status at discharge: patient is progressing back to baseline Discharge Orders: Discharge Order (Routine); Ordered 11/28/20 Ordered By: Rayshawn ROSS VTE Deep Vein Thrombosis/Pulmonary Embolism Present on Admission: No
--- NOTE | 2020-12-04 10:28 | EKG ---
[facility] Test Date: 2020-11-27 Pat Name: Rebeca Mcknight Department: [facility] Room: 126 Gender: Female Qualitative [employer] Project Manager: : [id number] Requested By: Sterling Melendez Order Number: [id number] Reading MD: Grupo Hurd M.D. Measurements Intervals [place] Rate: 67 P: 70 RI: 203 QRS: 47 QRSD: 96 T: 47 QT: 459 QTc: 485 Interpretive Statements Sinus arrhythmia FIRST DEGREE AV BLOCK early R-wave transition V2 Electronically Signed On 11-28-2020 13:13:48 PDT by Grupo Hurd M.D. /[email or web address]/[id number]
== END 2020-11-28 16:15 | disposition home health service (06) | DRG 641 ==
LOC: ED 07:50 → MEDSUR 17:43
PROVIDERS: ADMIT Internal Medicine; ATTEND Internal Medicine

== ENCOUNTER 2021-01-01 12:21 | Inpatient (IN) ==
[2021-01-01] MEDS ORDERED: IOPAMIDOL 100 ML BOTTLE IV ONE (12:22)
[2021-01-01] MEDS ORDERED: ACETAMINOPHEN 325 MG TABLET PO ONE (12:48)
--- NOTE | 2021-01-01 12:52 | Emergency Department Note ---
Fall HPI General Chief Complaint: Fall Stated Complaint: fall Time Seen by Provider: 01/01/21 12:35 Source: patient and EMS Mode of arrival: EMS History of Present Illness HPI Narrative: This is an 85-year-old female patient with history of frequent falls who suffered a fall this morning while at home. She used her life alert to call 911. She cannot remember what caused her to fall. She denies prodrome of dizziness or lightheadedness. She denies heart palpitations. She is a somewhat poor historian so I reach out to her son Anthony, by phone. He tells me that she's had multiple falls and has been in our ER. She was seen on 11/[address] scan noted old L1, L5, and T12 compression fractures. She had a second CT scan on 11/27 which showed new fractures of the right superior and inferior rami and was admitted overnight for observation. She was also noted to have a UTI at that time and per her son, she was treated with antibiotics. Since then she has been receiving home health services, but allegedly called and canceled her appointment this morning. Her son believes that she is more confused. His plan is to move in with her at the end of the month. Related Data Home Medications Medication Instructions Recorded Confirmed calcium carbonate [Biocal (calcium 1,200 mg PO QDAY #0 11/27/20 01/01/21 carbonate)] latanoprost 1 drp OPHTHALMIC (EYE) QDAY 11/27/20 01/01/21 lisinopril 40 mg PO DAILY 11/27/20 01/01/21 timolol maleate 1 drp OPHTHALMIC (EYE) BID 11/27/20 01/01/21 brimonidine 1 drp OPHTHALMIC (EYE) BID 01/01/21 01/01/21 cholecalciferol (vitamin D3) 1,000 mcg PO QDAY 01/01/21 01/01/21 Previous Rx's Medication Instructions Recorded walker #1 ea 12/11/20 mirtazapine 7.5 mg tablet See Rx Instructions .ROUTE 12/24/20 .COMPLEX #90 tablet Allergies Allergy/AdvReac Type Severity Reaction Status Date / Time nitrofurantoin Allergy Mild RASH Verified 01/01/21 12:25 [From MACROBID] Review of Systems ROS ROS Narrative: Narrative: PFSH Narrative Patient History Narrative: Narrative: Medical/Surgical/Family History All Active Problems (Updated 01/01/21 @ 17:38 by Melanie Chester PA-C) Fall (Acute) Hyponatremia (Acute) Ambulatory dysfunction (Acute) Confusion (Acute) Compression fracture of body of thoracic vertebra (Acute) Compression fracture of lumbar vertebrae, non-traumatic (Acute) Closed pelvic fracture (Acute) CAD (coronary artery disease) (Acute) Hypertension (Acute) Dysphasia (Acute) Immunization deficiency (Acute) Urinary tract infection (Acute) Inferior pubic ramus fracture (Acute) Costochondral chest pain (Chronic) Costochondral joint sprain (Chronic) Closed left hip fracture (Chronic) Upper extremity weakness (Chronic) Scapular dyskinesis (Chronic) Rib fracture (Chronic) Acute cystitis (Chronic) Carotid bruit (Chronic) Chest wall contusion (Chronic) Essential (primary) hypertension (Chronic) GERD without esophagitis (Chronic) Glaucoma (Chronic) Hyperlipidemia (Chronic) 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) Osteoporosis (Chronic) Compression fracture of lumbar vertebra (Chronic) Allergic rhinitis (Chronic) Aortic valve stenosis (Chronic) Aortic valve regurgitation (Chronic) Bladder infection (Chronic) Pleural effusion (Chronic) Urinary frequency (Chronic) Medical History (Updated 01/01/21 @ 17:38 by Melanie Chester PA-C) Acute cystitis Allergic rhinitis Aortic valve regurgitation Aortic valve stenosis Bladder infection CAD (coronary artery disease) Carotid bruit Chest wall contusion Compression fracture of lumbar vertebra Dysphasia Essential (primary) hypertension GERD without esophagitis Glaucoma Hyperlipidemia Hypertension Immunization deficiency Inferior pubic ramus fracture Macular degeneration of both eyes Nonrheumatic aortic valve insufficiency Osteoporosis Pleural effusion Urinary tract infection Surgical History History of appendectomy History of bladder surgery History of cataract surgery History of colonoscopy History of esophagogastroduodenoscopy (EGD) History of hysterectomy Family History Brother Alcoholism Son Alcoholism Son Alcoholism Mother , age 85 Heart disease Sister Myocardial infarction Father Social History Smoking Status: Never smoker Alcohol Intake Frequency: does not drink Exam Narrative Narrative: General: AOx3, NAD, nontoxic appearing. Pleasant and conversant. HEENT: PERRLA, EOMI, normocephalic. Dry mucous membranes. Normal facies. Respiratory: Lungs clear to auscultation bilaterally. No respiratory distress. Unlabored breathing. Setting 89% on room air Heart: Regular rate and rhythm, no murmurs/clicks/rubs. Abdomen: Non-tender, Non distended, normal bowel tones. No organomegaly. Extremities: Warm and well perfused. No edema. DP 2+ bilaterally. No venous stasis. She has no pain to palpation of the greater trochanters. She has normal internal and external rotation. No deformities noted. No ecchymosis. She is sensate throughout and strength is 5/5 bilaterally. Back: She has significant pain to palpation along the sacrum and the left ilium. No ecchymosis. Neuro: No focal deficits. Cranial nerves II-XII normal. Skin: Warm dry, no rashes or lesions, no cyanosis. Psych: Normal mood and affect Heme/Lymph: No bruising Course Course Course Narrative: 85-year-old female is seen for recurrent falls and confusion Reevaluation(s) Reevaluation #1: Obtain basic labs Will obtain CT of the C/A/P and cervical neck to rule out acute on chronic fractures Give oral Tylenol Reevaluation #2: CMP shows a sodium of 121 UA shows few urine bacteria and leukocyte esterase, reflexed for culture CT scan showed no acute fractures and healing right superior/inferior pubic rami fractures. An ileus is noted. She has a 4.5 cm ascending thoracic aneurysm. I do ask the patient if she has felt constipated and she says no. She is moving her bowels. She does states she's had a poor appetite over the last 2 days. Reevaluation #3: Nursing notes that patient has been hypoxic on room air and is requiring 3 to 5 L of oxygen to keep her sats above 90. CT scan with contrast of the chest shows no infiltrates or edema, and a small right pleural effusion which would be unlikely to explain her hypoxia. Patient is not febrile or tachycardic, nor is she endorsing shortness of breath. She has no history of COPD or asthma. Her lung exam is normal. My clinical suspicion for PE is very low at this point and I do not feel it is necessary to obtain a D-dimer or CTA of the chest unless her clinical presentation worsens. Vital Signs Vital signs: Vital Signs Temperature 97.3 F 06/22/21 12:21 Pulse Rate 69 01/01/21 12:21 Respiratory Rate 16 01/01/21 12:21 Blood Pressure 142/87 01/01/21 12:21 Pulse Oximetry (%) 94 01/01/21 12:21 Temperature 97.3 F 01/01/21 12:21 Pulse Rate 73 01/01/21 17:31 Respiratory Rate 19 01/01/21 17:31 Blood Pressure 133/77 01/01/21 17:31 Pulse Oximetry (%) 88 L 01/01/21 17:31 MDM MDM Narrative Medical decision making narrative: Recurrent falls Hyponatremia Ambulatory dysfunction Confusion Patient meets criteria for inpatient admission. She will likely need placement given her recurrent falls. I am giving her fluid hydration with normal saline 100 mL/h. Awaiting hospitalist to discuss admission. Case discussed with Dr. Parikh, hospitalist, and he has except the patient for admission. Lab Data Result diagrams: 01/01/21 12:57 01/01/21 12:56 Labs: Lab Results 01/01/21 01/01/21 Range/Units 12:56 12:57 WBC 9.7 (4.5-11.0) K/mcL RBC 4.10 (4.00-5.20) M/mcL Hgb 12.8 (12.0-15.0) g/dL Hct 36.0 (36.0-48.0) % MCV 87.8 (80.0-100.0) fL MCH 31.2 (26.0-34.0) pg MCHC 35.6 (31.0-36.0) g/dL RDW 13.2 (11.5-14.5) % Plt Count 257 (140-440) K/mcL MPV 10.7 H (7.4-10.4) fL Neut % (Auto) 76.5 (38.0-78.0) % Lymph % (Auto) 11.0 L (15.0-49.0) % [place] % (Auto) 12.4 H (1.0-12.0) % Eos % (Auto) 0 (0.0-7.0) % Baso % (Auto) 0.1 (0.0-2.0) % Lymph # (Auto) 1.07 L (1.50-4.80) K/mcL [place] # (Auto) 1.20 H (0.10-0.90) K/mcL Eos # (Auto) 0 (0.00-0.70) K/mcL Baso # (Auto) 0.01 (0.00-0.20) K/mcL Absolute Neutrophils 7.43 (1.80-8.00) K/mcL Sodium 121 L (133-145) mmol/L Potassium 3.6 (3.3-5.1) mmol/L Chloride 88 L (96-108) mmol/L Carbon Dioxide 19 L (22-30) mmol/L Anion Gap 14.0 (8.0-16.0) BUN 14 (8-23) mg/dL Creatinine 0.5 L (0.6-1.1) mg/dL GFR Calculation 88 Glucose 115 H (70-105) mg/dL Calcium 9.1 (8.6-10.4) mg/dL Total Bilirubin 1.2 H (0.1-1.0) mg/dL AST 21 (<32) U/L ALT 12 (<40) U/L Alkaline Phosphatase 151 H (39-117) U/L Total Protein 6.3 (5.9-8.4) gm/dL Albumin 4.0 (3.2-5.2) gm/dL Globulin 2.3 (2.2-3.7) gm/dL Albumin/Globulin Ratio 1.7 (1.0-2.3) ED POC Tests ED POC Tests: MARII - SARS Antigen Negative Discharge Plan Patient/Caregiver Discharge Instructions Pt seen by [employer]/PA only: Yes Clinical Impression: Fall, Hyponatremia, Ambulatory dysfunction, Confusion Patient Disposition: Xfer As Inpt ([facility]) Follow up with: Alfredo Gutierrez MD, FAAFP [Primary Care Provider] - Prescriptions: No Action mirtazapine 7.5 mg tablet See Rx Instructions .ROUTE .COMPLEX Qty: 90 RF: 0 (DME) walker Misc See Rx Instructions .Route Qty: 1 RF: 0 latanoprost 0.005 % Drops 1 drp OPHTHALMIC (EYE) QDAY RF: 0 calcium carbonate [Biocal (calcium carbonate)] 500 mg calcium (1,250 mg) Tablet 1,200 mg PO QDAY Qty: 0 RF: 0 timolol maleate 0.5 % Drops, Once Daily 1 drp OPHTHALMIC (EYE) BID RF: 0 lisinopril 20 mg tablet 40 mg PO DAILY RF: 0 brimonidine 0.2 % drops 1 drp OPHTHALMIC (EYE) BID RF: 0 cholecalciferol (vitamin D3) 250 mcg (10,000 unit) Tablet 1,000 mcg PO QDAY RF: 0
[2021-01-01] MEDS ORDERED: ONDANSETRON 4 MG/2 ML VIAL IV ONE (13:28)
[2021-01-01 13:36] LABS: Basophils # (Auto) 0.01 K/mcL (0.00-0.20); Basophils % (Auto) 0.1 % (0.0-2.0); Eosinophils # (Auto) 0 K/mcL (0.00-0.70); Eosinophils % (Auto) 0 % (0.0-7.0); Hemoglobin 12.8 g/dL (12.0-15.0); Lymphocytes # (Auto) 1.07 K/mcL (1.50-4.80); Mean Cell Volume 87.8 fL (80.0-100.0); Mean Corpuscular HGB Conc 35.6 g/dL (31.0-36.0); Mean Platelet Volume 10.7 fL (7.4-10.4); Monocytes % (Auto) 12.4 % (1.0-12.0); Neutrophils % (Auto) 76.5 % (38.0-78.0); Platelet Count 257 K/mcL (140-440); Red Cell Distribution Width 13.2 % (11.5-14.5); WBC 9.7 K/mcL (4.5-11.0)
--- NOTE | 2021-01-01 14:00 | Cat Scan Report ---
CLINICAL INFORMATION: Trauma COMPARISON: Abdomen and pelvic CT 11/29/2020. Lumbar spine CT 11/27/2020 TECHNIQUE: Enteric contrast was utilized. 80 cc of Isovue-370 were injected intravenously, and 50 seconds later 2.5 mm helical slices were obtained from the lung apices through the subtrochanteric regions of the femurs. Following reconstruction, 2.5 mm sagittal, coronal and axial reformatted images were processed and reviewed at multiple windows and levels. 7 mm MIP reconstructions were obtained through the lungs to optimize nodule detection.The exam was performed using radiation dose optimization techniques including, but not limited to, automated exposure control, adjustment of the mA and/or kV according to patient size and use of iterative reconstruction technique. FINDINGS: Pulmonary parenchymal windows show subsegmental atelectasis in both posterior dependent lower lobes. Small simple right pleural effusion noted. Mediastinal windows show mild diffuse aneurysmal enlargement of the ascending thoracic aorta with diameter 4.5 cm. The aortic arch and descending thoracic aorta are normal diameter with diffuse fibrofatty calcific plaque. The pulmonary arteries are normal diameter - no evidence of central embolus. The heart is moderately enlarged with heavy calcification in the aortic and mitral valve. There is also calcific plaque scattered within the coronary arteries. A small simple pericardial effusion is noted. There is no mediastinal air or hemorrhage or adenopathy. The esophagus is grossly normal. Thyroid is unremarkable. Abdominal images show gallbladder and bile ducts, liver, both kidneys, adrenal glands, spleen, pancreas and abdominal aorta be normal in size configuration and attenuation without focal lesion. There is no free air, free intraperitoneal fluid or adenopathy. Pelvic images show urinary bladder is normal. Uterus is not identified presumably surgically absent. Neither ovary identified also likely surgically absent. Stomach small large bowel show symmetric dilatation compatible with ileus. Bone windows show old unified fractures of both superior and inferior pubic rami. There is also an old ununited fracture of the left sacral ala. Bone windows also show multiple osteoporotic chronic compression fractures: Mild T1 T2 T3 moderate T4 mild C5-C6 C7 T8 moderate T9, moderate T11, superior T12, moderate L1 and moderate L5. Chronic L5-S1 spondylolysis seen as before. IMPRESSION: 1. No acute posttraumatic change throughout the chest, abdomen or pelvis. 2. Mild aneurysm ascending thoracic aorta - 4.5 cm diameter. 3. Small right pleural effusion. 4. Moderate cardiomegaly with calcification in aortic and mitral valves. There is also calcification in the coronary arteries and small pericardial effusion. 5. Old ununited fractures of both superior and inferior pubic rami. There are also multiple old compression fractures of the thoracic and lumbar spine are stable radiographically 6. Chronic L5-S1 spondylolysis stable. Interpreted and Authenticated by: Clay Marquez 01/01/21
--- NOTE | 2021-01-01 14:09 | Cat Scan Report ---
CLINICAL INFORMATION: Trauma COMPARISON: None. TECHNIQUE: 0.625 mm helical slices were obtained from the skull base through the superior T2 end plate, and following reconstruction, 2.5 mm sagittal, coronal and axial reformations were then processed. The exam was reviewed at bone and soft tissue windows. The exam was performed using radiation dose optimization techniques including, but not limited to, automated exposure control, adjustment of the mA and/or kV according to patient size and use of iterative reconstruction technique. FINDINGS: Sagittal coronal reformatted images show the spine is anatomically aligned. There is no fracture or other osseous abnormality. The cervical cord is normal in contour and caliber without hemorrhage or other abnormality. No soft tissue abnormality. The C2-3, C3-4 and C4-5 disc levels are normal. At C5-6 and C6-7 mild broad disc spur complexes minimally impinges the thecal sac. At C7-T1 disc level is normal IMPRESSION: No fracture or posttraumatic change. Degeneration Interpreted and Authenticated by: Clay Marquez 01/01/21
[2021-01-01 14:21] LABS: ALT/SGPT 12 U/L (<40); AST/SGOT 21 U/L (<32); Albumin/Globulin Ratio 1.7 (1.0-2.3); Alkaline Phosphatase 151 U/L (39-117); Bilirubin,Total 1.2 mg/dL (0.1-1.0); Blood Urea Nitrogen 14 mg/dL (8-23); Calcium 9.1 mg/dL (8.6-10.4); Carbon Dioxide 19 mmol/L (22-30); Chloride 88 mmol/L (96-108); Globulin 2.3 gm/dL (2.2-3.7); Glomerular Filtration Rate 88; Glucose 115 mg/dL (70-105)
[2021-01-01] MEDS ORDERED: 0.9 % SODIUM CHLORIDE 1,000 ML IV SCH (15:00)
--- NOTE | 2021-01-01 17:32 | Internal Med History&Physical ---
HPI History of Present Illness Patient information: Note initiated : 01/01/21 at 5:17 pm Service Date, if different from initiated Date: [] Patient: Rebeca Mcknight 85 y/o F admitted on for fall. Chief Complaint: [] History of present illness: Ms. Mcknight is a 85 year old female with a history of hypertension, coronary artery disease, aortic valve regurgitation, glaucoma, recurrent falls, history of left intertrochanteric fracture status post ORIF, history of pelvic fracture, history of multiple vertebral compression fractures who presented to the ED after a fall at home. Patient was last discharged from [facility] on 11/28/2020 after being admitted for back pain from a recent fall. Patient also had hyponatremia at that encounter. This time, work-up in the ED included a CT chest abdomen and pelvis and CT cervical spine that did not show any acute fractures. Patient had a sodium level of 121. Patient has a new oxygen requirement. Vitals are otherwise stable, the patient does not appear to be in any respiratory distress. Review of systems Constitutional: no fever, fatigue, or weight loss Eyes: no vision changes or pain Cardiovascular: no chest pain, no palpitations Respiratory: no cough or dyspnea Gastrointestinal: no abdominal pain, no nausea, vomiting, or diarrhea Genitourinary: no dysuria or difficulty voiding Musculoskeletal: Positive for falls, no arthralgia or myalgia Integumentary: no skin lesion or wound Neurological: no focal weakness or numbness Psychiatric: no anxiety or depression Physical exam Head: Atraumatic, normal inspection. Eyes: normal appearance, no scleral icterus. Neck: full ROM Respiratory: no respiratory distress. Cardiovascular: normal rate and rhythm, S1, S2. GI/Abdominal: soft, nontender, no guarding. Extremities: full range of motion, nontender, asymmetric edema of left lower extremity. Neurological: CN II-XII intact, intact motor, intact sensation. Psychiatric: normal mood. Skin: warm, normal color PFSH PFSH All Active Problems (Updated 01/01/21 @ 17:38 by Melanie Chester PA-C) Fall (Acute) Hyponatremia (Acute) Ambulatory dysfunction (Acute) Confusion (Acute) Compression fracture of body of thoracic vertebra (Acute) Compression fracture of lumbar vertebrae, non-traumatic (Acute) Closed pelvic fracture (Acute) CAD (coronary artery disease) (Acute) Hypertension (Acute) Dysphasia (Acute) Immunization deficiency (Acute) Urinary tract infection (Acute) Inferior pubic ramus fracture (Acute) Costochondral chest pain (Chronic) Costochondral joint sprain (Chronic) Closed left hip fracture (Chronic) Upper extremity weakness (Chronic) Scapular dyskinesis (Chronic) Rib fracture (Chronic) Acute cystitis (Chronic) Carotid bruit (Chronic) Chest wall contusion (Chronic) Essential (primary) hypertension (Chronic) GERD without esophagitis (Chronic) Glaucoma (Chronic) Hyperlipidemia (Chronic) 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) Osteoporosis (Chronic) Compression fracture of lumbar vertebra (Chronic) Allergic rhinitis (Chronic) Aortic valve stenosis (Chronic) Aortic valve regurgitation (Chronic) Bladder infection (Chronic) Pleural effusion (Chronic) Urinary frequency (Chronic) Medical History (Updated 01/01/21 @ 17:38 by Melanie Chester PA-C) Acute cystitis Allergic rhinitis Aortic valve regurgitation Aortic valve stenosis Bladder infection CAD (coronary artery disease) Carotid bruit Chest wall contusion Compression fracture of lumbar vertebra Dysphasia Essential (primary) hypertension GERD without esophagitis Glaucoma Hyperlipidemia Hypertension Immunization deficiency Inferior pubic ramus fracture Macular degeneration of both eyes Nonrheumatic aortic valve insufficiency Osteoporosis Pleural effusion Urinary tract infection Surgical History History of appendectomy History of bladder surgery History of cataract surgery History of colonoscopy History of esophagogastroduodenoscopy (EGD) History of hysterectomy Family History Brother Alcoholism Son Alcoholism Son Alcoholism Mother , age 85 Heart disease Sister Myocardial infarction Father Social History alcohol intake frequency: does not drink MEDS/ALLERGIES Home Medications and Allergies Home Medications Medication Instructions Recorded Confirmed Type calcium carbonate [Biocal (calcium 1,200 mg PO QDAY #0 11/27/20 01/01/21 History carbonate)] latanoprost 1 drp OPHTHALMIC (EYE) QDAY 11/27/20 01/01/21 History lisinopril 40 mg PO DAILY 11/27/20 01/01/21 History timolol maleate 1 drp OPHTHALMIC (EYE) BID 11/27/20 01/01/21 History walker #1 ea 12/11/20 Rx mirtazapine 7.5 mg tablet See Rx Instructions .ROUTE 12/24/20 01/01/21 Rx .COMPLEX #90 tablet brimonidine 1 drp OPHTHALMIC (EYE) BID 01/01/21 01/01/21 History cholecalciferol (vitamin D3) 1,000 mcg PO QDAY 01/01/21 01/01/21 History Allergies Allergy/AdvReac Type Severity Reaction Status Date / Time nitrofurantoin Allergy Mild RASH Verified 01/01/21 12:25 [From MACROBID] EXAM Constitutional Vitals: Temp Pulse Resp BP Pulse Ox 97.3 F 67 14 139/74 83 L 01/01/21 12:21 01/01/21 17:01 01/01/21 17:01 01/01/21 17:01 01/01/21 17:01 DATA Data Completed and Pending Labs: Labs from last 24 hours 01/01/21 01/01/21 12:57 12:56 WBC 9.7 RBC 4.10 Hgb 12.8 Hct 36.0 MCV 87.8 MCH 31.2 MCHC 35.6 RDW 13.2 Plt Count 257 MPV 10.7 H Neut % (Auto) 76.5 Lymph % (Auto) 11.0 L [place] % (Auto) 12.4 H Eos % (Auto) 0 Baso % (Auto) 0.1 Lymph # (Auto) 1.07 L [place] # (Auto) 1.20 H Eos # (Auto) 0 Baso # (Auto) 0.01 Absolute Neutrophils 7.43 Sodium 121 L Potassium 3.6 Chloride 88 L Carbon Dioxide 19 L Anion Gap 14.0 BUN 14 Creatinine 0.5 L GFR Calculation 88 Glucose 115 H Calcium 9.1 Total Bilirubin 1.2 H AST 21 ALT 12 Alkaline Phosphatase 151 H Total Protein 6.3 Albumin 4.0 Globulin 2.3 Albumin/Globulin Ratio 1.7 A/P Narrative A/P Narrative: Assessment: 85-year-old female admitted after a fall at home, likely mechanical fall. The patient does not remember the details, says she fell in the bathroom. No serious injuries sustained from the fall. Patient is also hyponatremic with a sodium of 121. #Fall, likely mechanical #Hyponatremia #Generalized weakness #Left lower extremity edema #Hypertension #Osteoporosis #Hx aortic valve regurgitation #Hx of multiple vertebral compression fractures #Hx pelvic fractures #Hx left hip fracture status post ORIF Plan -Sodium restriction, follow sodium level. -Serum osm, urine Na, Urine osm, TSH -TTE echo. -Left lower extremity venous duplex. -Essential home medications. -PT and OT. -Telemetry -DVT PPx: Lovenox SQ -CODE STATUS: DNR -Disposition: Probably SNF Time Spent With Patient Time: Total time spent is greater than 50% in coordination of care (as documented) at patient's floor/unit and/or counseling patient: QUALITY Stroke Symptom Onset Unknown: No
[2021-01-01] MEDS ORDERED: ONDANSETRON 4 MG/2 ML VIAL IV PRN (18:25)
[2021-01-01 20:05] LABS: Appearance,Urine HAZY (Clear); Bacteria,Urine FEW /hpf (0); Bilirubin,Urine Negative (Negative); Color,Urine YELLOW; Culture Indicated,Urine yes; Glucose,Urine (UA) Negative (Negative); Ketones,Urine 5 mg/dL (Negative); Leukocyte Esterase,Urine 250 /ug (Negative); Mucus,Urine FEW /hpf; Nitrate,Urine POS (Negative); Protein,Urine Negative (Negative); Urine RBC 4 /hpf (0-3); Urine Squamous Epithelial Cell 0 /hpf (0-4); Urine WBC 103 /hpf (0-4); Urobilinogen,Urine Negative
[2021-01-01 20:19] LABS: Osmolality,Urine 264 mOSM/kg (80-1000)
[2021-01-01] MEDS: DOCUSATE SODIUM 100 MG CAPSULE PO SCH (21:17)
[2021-01-01] MEDS: SENNOSIDES 1 TABLET PO SCH (21:17)
[2021-01-01] MEDS: MIRTAZAPINE 15 MG TABLET PO SCH (21:17)
[2021-01-01] MEDS: 0.9 % SODIUM CHLORIDE 10 ML SYRINGE IV SCH (21:18)
[2021-01-01] MEDS: TIMOLOL 0.5% OPHTH DROPS BOTTLE 5ML OU SCH (21:18)
[2021-01-01] MEDS: BRIMONIDINE OPHTH DROPS 1 GTT BOTTLE 5ML OU SCH (21:18)
[2021-01-01 22:58] LABS: Sodium, Urine Random 20 mmol/L
--- NOTE | 2021-01-02 03:59 | Ultrasound Report ---
CLINICAL INFORMATION: Asymmetric leg edema COMPARISON: None. FINDINGS: The entire deep venous system including the common femoral, superficial femoral, popliteal and paired trifurcation calf veins are easily compressible and show normal venous blood flow on color and spectral Doppler. No evidence of thrombus IMPRESSION: Negative exam - no evidence of deep vein thrombosis. Interpreted and Authenticated by: Clay Marquez 01/02/21
[2021-01-02] MEDS ORDERED: POTASSIUM CHLORIDE 20 MEQ TABLET PO ONE ×2 (05:16→06:21)
[2021-01-02] MEDS: 0.9 % SODIUM CHLORIDE 10 ML SYRINGE IV SCH ×3 (06:11→20:06)
[2021-01-02 07:53] LABS: Blood Urea Nitrogen 12 mg/dL (8-23); Calcium 8.9 mg/dL (8.6-10.4); Carbon Dioxide 19 mmol/L (22-30); Chloride 92 mmol/L (96-108); Glomerular Filtration Rate 88; Glucose 95 mg/dL (70-105); Thyroid Stimulating Hormone 2.62 uIU/mL (0.27-5.01)
[2021-01-02] MEDS: LISINOPRIL 20 MG TABLET PO SCH (08:08)
[2021-01-02] MEDS: CALCIUM (OYSTER SHELL) 500 MG TABLET PO SCH (08:08)
[2021-01-02] MEDS: VITAMIN D3 1,000 UNIT TABLET PO SCH (08:08)
[2021-01-02] MEDS: DOCUSATE SODIUM 100 MG CAPSULE PO SCH ×2 (08:08→20:06)
[2021-01-02] MEDS: BRIMONIDINE OPHTH DROPS 1 GTT BOTTLE 5ML OU SCH ×2 (08:09→19:31)
[2021-01-02] MEDS: ENOXAPARIN 40 MG/0.4 ML SYRINGE SQ SCH (08:09)
[2021-01-02] MEDS: TIMOLOL 0.5% OPHTH DROPS BOTTLE 5ML OU SCH ×3 (08:10→20:06)
[2021-01-02] MEDS: LATANOPROST OPHTH DROPS 2.5ML BOTTLE OU SCH (08:11)
--- NOTE | 2021-01-02 09:10 | Internal Med Progress Note ---
SUBJECTIVE Subjective Patient information: Note initiated : 01/02/21 at 9:01 am Service Date, if different from initiated Date: [] Patient: Rebeca Mcknight 85 y/o F admitted on 01/01/21 for fall. Chief Complaint: [] Interval history: Ms. Mcknight is a 85 year old female with a history of hypertension, coronary artery disease, aortic valve regurgitation, glaucoma, recurrent falls, history of left intertrochanteric fracture status post ORIF, history of pelvic fracture, history of multiple vertebral compression fractures who presented to the ED after a fall at home. Patient was last discharged from [facility] on 11/28/2020 after being admitted for back pain from a recent fall. Patient also had hyponatremia at that encounter. This time, work-up in the ED included a CT chest abdomen and pelvis and CT cervical spine that did not show any acute fractures. Patient had a sodium level of 121. Patient has a new oxygen requirement. Vitals are otherwise stable, the patient does not appear to be in any respiratory distress. She does have bilateral lower extremity edema. 01/02 Started lasix 40 mg IV x2 today, will monitor response. Hyponatremia could be related to heart failure, TTE report pending. Suspect aortic valve has worsened relative to last available ECHO report in 2014. Physical exam Head: Atraumatic, normal inspection. Eyes: normal appearance, no scleral icterus. Neck: full ROM Respiratory: nasal canula oxygen, no respiratory distress. Cardiovascular: normal rate and rhythm, S1, S2. GI/Abdominal: soft, nontender, no guarding. Extremities: full range of motion, nontender, bilateral lower extremity edema. Neurological: CN II-XII intact, intact motor, intact sensation. Psychiatric: normal mood. Skin: warm, normal color Constitutional Vitals: Vital Signs Temp Pulse Resp BP Pulse Ox 98.3 F 69 22 117/70 90 01/02/21 04:23 01/02/21 04:23 01/02/21 04:23 01/02/21 04:23 01/02/21 04:23 Period Temp Pulse Resp BP Sys/Feng Pulse Ox Last 24 Hr 97.3 F-98.8 F 58-91 14-24 110-147/61-87 83-97 Intake and Output 01/01/21 01/02/21 01/02/21 21:59 05:59 13:59 Intake Total 347 0 120 Output Total 300 200 200 Balance 47 -200 -80 Weight 46.675 kg Intake & Output: Intake & Output 01/01/21 01/02/21 01/02/21 21:59 05:59 13:59 Intake Total 347 0 120 Output Total 300 200 200 Balance 47 -200 -80 Weight 46.675 kg Intake: IV 347 Sodium Chloride 0.9% 1,000 ml @ 347 100 mls/hr IV .Q10H [facility] Rx#: [id number] Oral 0 120 Output: Void Amount 300 200 200 Other: Meal Breakfast Percent of Meal Consumed 25% Feeding Ability Independent Urine Appearance Clear Urine Color Bright Yellow Bright Yellow Urine Odor Normal # Voids 1 OBJ DATA Labs CBC & Chem 7: 01/01/21 12:57 01/02/21 05:18 Labs: Abnormal Lab Results 01/02/21 01/02/21 01/01/21 05:18 05:18 18:27 MPV Lymph % (Auto) [place] % (Auto) Lymph # (Auto) [place] # (Auto) Sodium 123 L Chloride 92 L Carbon Dioxide 19 L Creatinine 0.5 L Glucose Osmolality 261 L Total Bilirubin Alkaline Phosphatase NT-Pro-B Natriuret Pep 1751.0 H Urine Appearance Hazy A Urine Ketones 5 A Urine Nitrate Pos A Ur Leukocyte Esterase 250 A Urine RBC 4 H Urine WBC 103 H Urine Bacteria Few A Urine Mucus Few A 01/01/21 01/01/21 12:57 12:56 MPV 10.7 H Lymph % (Auto) 11.0 L [place] % (Auto) 12.4 H Lymph # (Auto) 1.07 L [place] # (Auto) 1.20 H Sodium 121 L Chloride 88 L Carbon Dioxide 19 L Creatinine 0.5 L Glucose 115 H Osmolality Total Bilirubin 1.2 H Alkaline Phosphatase 151 H NT-Pro-B Natriuret Pep Urine Appearance Urine Ketones Urine Nitrate Ur Leukocyte Esterase Urine RBC Urine WBC Urine Bacteria Urine Mucus Meds: Medications Brimonidine Tartrate (Brimonidine Ophth Drops 1 Gtt Bottle 5ml) 1 gtt OU BID [facility] Last Admin: 01/02/21 08:09 Dose: 1 gtt Documented by: Calcium Carbonate/Glycine (Calcium (Oyster Shell) 500 Mg Tablet) 1,000 mg PO QDAY [facility] Last Admin: 01/02/21 08:08 Dose: 1,000 mg Documented by: Docusate Sodium (Docusate Sodium 100 Mg Capsule) 100 mg PO BID [facility] Last Admin: 01/02/21 08:08 Dose: 100 mg Documented by: Enoxaparin Sodium (Enoxaparin 40 Mg/0.4 Ml Syringe) 40 mg SQ DAILY [facility] Last Admin: 01/02/21 08:09 Dose: 40 mg Documented by: Furosemide (Furosemide 40 Mg/4 Ml Vial) 40 mg IV BIDD [facility] Stop: 01/04/21 08:59 Latanoprost (Latanoprost Ophth Drops 2.5ml Bottle) 1 gtt OU QDAY [facility] Last Admin: 01/02/21 08:11 Dose: Not Given Documented by: Lisinopril (Lisinopril 20 Mg Tablet) 40 mg PO DAILY [facility] Last Admin: 01/02/21 08:08 Dose: 40 mg Documented by: Mirtazapine (Mirtazapine 15 Mg Tablet) 7.5 mg PO [facility] Last Admin: 01/01/21 21:17 Dose: 7.5 mg Documented by: Ondansetron HCl (Ondansetron 4 Mg/2 Ml Vial) 4 mg IV Q6HP PRN PRN Reason: Nausea And Vomiting Senna (Sennosides 1 Tablet) 2 tab PO [facility] Last Admin: 01/01/21 21:17 Dose: 2 tab Documented by: Sodium Chloride (0.9 % Sodium Chloride 10 Ml Syringe) 10 ml IV Q8 [facility] Last Admin: 01/02/21 06:11 Dose: 10 ml Documented by: Timolol Maleate (Timolol 0.5% Ophth Drops Bottle 5ml) 1 gtt OU BID [facility] Last Admin: 01/02/21 08:10 Dose: 1 gtt Documented by: Vitamin D (Vitamin D3 1,000 Unit Tablet) 1,000 unit PO QDAY [facility] Last Admin: 01/02/21 08:08 Dose: 1,000 unit Documented by: A/P Narrative A/P Narrative: Assessment: 85-year-old female admitted after a fall at home, likely mechanical fall. The patient does not remember the details, says she fell in the bathroom. No serious injuries sustained from the fall. Patient is also hyponatremic with a sodium of 121, bilateral lower extremity edema lt>rt. Left lower extremity venous duplex negative for DVT. TTE pending. Trial of las ix. #Hyponatremia, hypervolemic -Urine Na 20, urine osm 264, TSH normal -bilateral lower extremity edema lt>rt -possibly related to heart failure/AV insufficiency #Acute hypoxic respiratory failure -possible CHF but not much pulmonary edema on CT chest -CT chest w/ contrast neg for central embolus -left lower extremity negative for DVT #Bilateral lower extremity edema #Fall at home, likely mechanical fall (patient does not remember) #Generalized weakness #Hypertension #Osteoporosis #Hx aortic valve regurgitation #Hx of multiple vertebral compression fractures #Hx pelvic fractures #Hx left hip fracture status post ORIF Plan -Sodium and fluid restriction, follow sodium level. -Trial of lasix 40 mg IV x2. -Oxygen supplementation as needed -Pending TTE echo. -Essential home medications. -PT and OT. -Telemetry -DVT PPx: Lovenox SQ -CODE STATUS: DNR -Disposition: Probably SNF Time Spent With Patient Time: Total time spent is greater than 50% in coordination of care (as documented) at patient's floor/unit and/or counseling patient: QUALITY Stroke Symptom Onset Unknown: No VTE Deep Vein Thrombosis/Pulmonary Embolism Present on Admission: No
[2021-01-02] MEDS: FUROSEMIDE 40 MG/4 ML VIAL IV SCH ×2 (10:18→16:37)
[2021-01-02] MEDS: ACETAMINOPHEN 160 MG/5 ML ORAL.SOL PO PRN (13:17)
--- NOTE | 2021-01-02 13:53 | Discharge Summary ---
Discharge Provider Provider Patient information: Note initiated : 01/02/21 at 1:51 pm Service Date, if different from initiated Date: [] Patient: Rebeca Mcknight 85 y/o F admitted on 01/01/21 for fall. Chief Complaint: [] Date of admission: 01/01/21 18:14 Discharge date: 01/04/21 Primary care physician: Alfredo Gutierrez M.D., F.A.A.F.P. Consults: 01/01/21 Consult to Physician [CONS] Stat Comment: Consulting Provider: Clark Parikh Reason For Exam: Physician to Consult 01/01/21 15:25 Consult to Physician [CONS] Stat Comment: Consulting Provider: Tomi Denis Reason For Exam: Physician to Consult Discharge Meds Discharge Medications Home Medications calcium carbonate 1,200 mg PO QDAY #0 11/27/20 [History Confirmed 01/01/21 Last Taken 11/26/20 08:00] latanoprost 1 drp OPHTHALMIC (EYE) QDAY 11/27/20 [History Confirmed 01/01/21 Last Taken 11/27/20 08:00] lisinopril 20 mg PO DAILY 11/27/20 [History Confirmed 01/01/21 Last Taken 11/27/20 08:00] timolol maleate 1 drp OPHTHALMIC (EYE) BID 11/27/20 [History Confirmed 01/01/21 Last Taken 11/27/20 08:00] walker #1 ea 12/11/20 [Rx Confirmed 01/01/21 Last Taken Unknown] mirtazapine 7.5 mg tablet See Rx Instructions .ROUTE .COMPLEX #90 tablet 12/24/20 [Rx Confirmed 01/01/21 Last Taken Unknown] brimonidine 1 drp OPHTHALMIC (EYE) BID 01/01/21 [History Confirmed 01/01/21 Last Taken Unknown] cholecalciferol (vitamin D3) 1,000 mcg PO QDAY 01/01/21 [History Confirmed 01/01/21 Last Taken Unknown] acetaminophen 500 mg PO Q6H PRN #30 tab 01/04/21 [Rx Last Taken Unknown] COURSE Hospital Course Hospital course: Interval history: Ms. Mcknight is a 85 year old female with a history of hypertension, coronary artery disease, aortic valve regurgitation, glaucoma, recurrent falls, history of left intertrochanteric fracture status post ORIF, history of pelvic fracture, history of multiple vertebral compression fractures who presented to the ED after a fall at home. Patient was last discharged from [facility] on 11/28/2020 after being admitted for back pain from a recent fall. Patient also had hyponatremia at that encounter. This time, work-up in the ED included a CT chest abdomen and pelvis and CT cervical spine that did not show any acute fractures. Patient had a sodium level of 121. Patient has a new oxygen requirement. Vitals are otherwise stable, the patient does not appear to be in any respiratory distress. She does have bilateral lower extremity edema. 01/02 Started lasix 40 mg IV x2 today, will monitor response. Hyponatremia could be related to heart failure, TTE report pending. Suspect aortic valve has worsened relative to last available ECHO report in 2014. 01/03 Feeling well. No complaints. Denies cough or shortness of breath. Patient was placed on 8 L oxygen mask last night but is on 1-1/2 L of nasal cannula this morning and titrating down. Labs follow-up with hyponatremia. 01/04 Patient feeling better. On room air. His sodium improved. Awaiting placement. Patient is on room air. did have some MSK pain right lower rib for a brief time this morning - the side she fell onto prior to admission. A: #Hyponatremia, hypervolemic: improved -Urine Na 20, urine osm 264, TSH normal -bilateral lower extremity edema lt>rt -possibly related to heart failure/AV insufficiency. echo good EF, mod MR/AR #Acute hypoxic respiratory failure -possible CHF but not much pulmonary edema on CT chest -CT chest w/ contrast neg for central embolus -left lower extremity negative for DVT -on room air while awake, #Bilateral lower extremity edema: #Fall at home, likely mechanical fall (patient does not remember) #Generalized weakness/deconditioning: #Hypertension: on ACEI #Hx aortic valve regurgitation #Hx of multiple vertebral compression fractures & pelvic fractures & Osteoporosis #Hx left hip fracture status post ORIF #UTI(e. coli) Discharge diagnosis: Hyponatremia acute hypoxic respiratory failure edema UTI fall Secondary discharge diagnosis: Fall generalized weakness hypertension osteoporosis porosis. Valve regurgitation vertebral compression fracture pelvic fractures left hip fracture Time Spent with Patient Time attestation: Total time spent providing and/or coordinating discharge services: Time spent: Greater than 30 minutes EXAM Constitutional Vitals: Temp Pulse Resp BP Pulse Ox 97.4 F 96 H 20 121/70 90 01/02/21 12:00 01/02/21 12:00 01/02/21 12:00 01/02/21 12:00 01/02/21 12:00 Discharge Data Data Completed and Pending Labs on day of discharge: Labs from last 24 hours 01/02/21 01/02/21 01/01/21 05:18 05:18 18:27 Sodium 123 L Potassium 3.8 Chloride 92 L Carbon Dioxide 19 L Anion Gap 12.0 BUN 12 Creatinine 0.5 L GFR Calculation 88 Glucose 95 Osmolality 261 L Calcium 8.9 Magnesium 1.9 Total Bilirubin AST ALT Alkaline Phosphatase NT-Pro-B Natriuret Pep 1751.0 H Total Protein Albumin Globulin Albumin/Globulin Ratio TSH 2.62 Urine Color Yellow Urine Appearance Hazy A Urine pH 6.0 Ur Specific [place] 1.020 Urine Protein Negative Urine Glucose (UA) Negative Urine Ketones 5 A Urine Occult Blood 0.20 Urine Nitrate Pos A Urine Bilirubin Negative Urine Urobilinogen Negative Ur Leukocyte Esterase 250 A Urine RBC 4 H Urine WBC 103 H Ur Squamous Epith Cells 0 Urine Bacteria Few A Urine Mucus Few A Ur Culture Indicated? yes Urine Osmolality Ur Random Sodium 01/01/21 01/01/21 18:27 12:56 Sodium 121 L Potassium 3.6 Chloride 88 L Carbon Dioxide 19 L Anion Gap 14.0 BUN 14 Creatinine 0.5 L GFR Calculation 88 Glucose 115 H Osmolality Calcium 9.1 Magnesium Total Bilirubin 1.2 H AST 21 ALT 12 Alkaline Phosphatase 151 H NT-Pro-B Natriuret Pep Total Protein 6.3 Albumin 4.0 Globulin 2.3 Albumin/Globulin Ratio 1.7 TSH Urine Color Urine Appearance Urine pH Ur Specific [place] Urine Protein Urine Glucose (UA) Urine Ketones Urine Occult Blood Urine Nitrate Urine Bilirubin Urine Urobilinogen Ur Leukocyte Esterase Urine RBC Urine WBC Ur Squamous Epith Cells Urine Bacteria Urine Mucus Ur Culture Indicated? Urine Osmolality 264 Ur Random Sodium 20 Discharge Plan Patient/Caregiver Discharge Instructions Activity: increase activity as tolerated Diet: Regular Diet Instructions: Urinary Tract Infection in Women (DC), Hyponatremia (DC) Activity Restrictions/Additional Instructions: Fluid Restrict to 2000cc/day. Regular diet as tolerated. Follow up as outpatient with [facility]. Increase acitvity as tolerated. This discharge packet is provided to you to help keep you informed about your care. We want to ensure you get everything you need when you go home. You will also be receiving a call from us in a few days to follow up with you and see how you are doing since your discharge. This gives us a chance to listen to any concerns you maybe experiencing since you were discharged or any additional needs you may have, as well as providing us feedback on your care experience. We strive to always provide excellent care and thank you for your feedback and for choosing [facility]. Prescriptions: New acetaminophen 500 mg tablet 500 mg PO Q6H PRN (Reason: pain) Qty: 30 RF: 0 Continued mirtazapine 7.5 mg tablet See Rx Instructions .ROUTE .COMPLEX Qty: 90 RF: 0 (DME) walker Misc See Rx Instructions .Route Qty: 1 RF: 0 latanoprost 0.005 % Drops 1 drp OPHTHALMIC (EYE) QDAY RF: 0 calcium carbonate 500 mg calcium (1,250 mg) Tablet 1,200 mg PO QDAY Qty: 0 RF: 0 timolol maleate 0.5 % Drops, Once Daily 1 drp OPHTHALMIC (EYE) BID RF: 0 lisinopril 20 mg tablet 20 mg PO DAILY RF: 0 brimonidine 0.2 % drops 1 drp OPHTHALMIC (EYE) BID RF: 0 cholecalciferol (vitamin D3) 250 mcg (10,000 unit) Tablet 1,000 mcg PO QDAY RF: 0 Other Ambulatory Orders: Basic Metabolic Panel (Routine) Timeframe: 3 Days Facility: [facility] - Location: Laboratory Ordered By: Rayshawn Pozo OT Discharge Order (Routine) Location: None Selected Ordered By: Rayshawn Pozo Physical Therapy at Discharge - General (Routine) Location: None Selected Ordered By: Rayshawn Pozo Follow Up Plan [facility] [Primary Care Provider] - (Please call and schedule a hospital follow up.) Patient Disposition: Xfer SNF Prognosis: Fair Rehab Potential: Fair I certify that the patient requires SNF services: Yes Overall status at discharge: patient is progressing back to baseline Discharge Orders: Discharge Order (Routine); Ordered 01/04/21 Ordered By: Rayshawn Pozo QUALITY VTE Deep Vein Thrombosis/Pulmonary Embolism Present on Admission: No
--- NOTE | 2021-01-02 13:56 | Internal Med Progress Note ---
SUBJECTIVE Subjective Patient information: Note initiated : 01/02/21 at 1:54 pm Service Date, if different from initiated Date: [] Patient: Rebeca Mcknight 85 y/o F admitted on 01/01/21 for fall. Chief Complaint: [] Interval history: Ms. Mcknight is a 85 year old female with a history of hypertension, coronary artery disease, aortic valve regurgitation, glaucoma, recurrent falls, history of left intertrochanteric fracture status post ORIF, history of pelvic fracture, history of multiple vertebral compression fractures who presented to the ED after a fall at home. Patient was last discharged from [facility] on 11/28/2020 after being admitted for back pain from a recent fall. Patient also had hyponatremia at that encounter. This time, work-up in the ED included a CT chest abdomen and pelvis and CT cervical spine that did not show any acute fractures. Patient had a sodium level of 121. Patient has a new oxygen requirement. Vitals are otherwise stable, the patient does not appear to be in any respiratory distress. She does have bilateral lower extremity edema. 01/02 Started lasix 40 mg IV x2 today, will monitor response. Hyponatremia could be related to heart failure, TTE report pending. Suspect aortic valve has worsened relative to last available ECHO report in 2014. 01/03 Constitutional Vitals: Vital Signs Temp Pulse Resp BP Pulse Ox 97.4 F 96 H 20 121/70 90 01/02/21 12:00 01/02/21 12:00 01/02/21 12:00 01/02/21 12:00 01/02/21 12:00 Period Temp Pulse Resp BP Sys/Feng Pulse Ox Last 24 Hr 97.3 F-98.8 F 62-96 14-24 110-147/61-87 83-97 Intake and Output 01/01/21 01/02/21 01/02/21 21:59 05:59 13:59 Intake Total 347 0 120 Output Total 300 200 200 Balance 47 -200 -80 Weight 46.675 kg 46.675 kg Patient Weight 01/03/21 05:59 Weight 46.675 kg Intake & Output: Intake & Output 01/01/21 01/02/21 01/02/21 21:59 05:59 13:59 Intake Total 347 0 120 Output Total 300 200 200 Balance 47 -200 -80 Weight 46.675 kg 46.675 kg Intake: IV 347 Sodium Chloride 0.9% 1,000 ml @ 347 100 mls/hr IV .Q10H [facility] Rx#: [id number] Oral 0 120 Output: Void Amount 300 200 200 Other: Meal Breakfast Percent of Meal Consumed 25% Feeding Ability Independent Urine Appearance Clear Urine Color Bright Yellow Bright Yellow Urine Odor Normal # Voids 1 Exam: General: Alert, Awake, No acute Distress Eyes/N/T: EOMI, Head/Neck: neck supple, CV: RRR, No murmurs, Pulm: Clear b/l, no wheezing/rhonchi/rales Abd: soft, nontender, +BS x4 Ext: no clubbing/cyanosis, b/l LE edema Neuro: Alert, no focal deficits, moves all extremities, Skin: warm/dry OBJ DATA Labs CBC & Chem 7: 01/01/21 12:57 01/02/21 05:18 Labs: Abnormal Lab Results 01/02/21 01/02/21 01/01/21 05:18 05:18 18:27 MPV Lymph % (Auto) [place] % (Auto) Lymph # (Auto) [place] # (Auto) Sodium 123 L Chloride 92 L Carbon Dioxide 19 L Creatinine 0.5 L Glucose Osmolality 261 L Total Bilirubin Alkaline Phosphatase NT-Pro-B Natriuret Pep 1751.0 H Urine Appearance Hazy A Urine Ketones 5 A Urine Nitrate Pos A Ur Leukocyte Esterase 250 A Urine RBC 4 H Urine WBC 103 H Urine Bacteria Few A Urine Mucus Few A 01/01/21 01/01/21 12:57 12:56 MPV 10.7 H Lymph % (Auto) 11.0 L [place] % (Auto) 12.4 H Lymph # (Auto) 1.07 L [place] # (Auto) 1.20 H Sodium 121 L Chloride 88 L Carbon Dioxide 19 L Creatinine 0.5 L Glucose 115 H Osmolality Total Bilirubin 1.2 H Alkaline Phosphatase 151 H NT-Pro-B Natriuret Pep Urine Appearance Urine Ketones Urine Nitrate Ur Leukocyte Esterase Urine RBC Urine WBC Urine Bacteria Urine Mucus Meds: Medications Acetaminophen (Acetaminophen 160 Mg/5 Ml Oral.Fay) 650 mg PO Q6HP PRN; Protocol PRN Reason: Per Pain Protocol Last Admin: 01/02/21 13:17 Dose: 650 mg Documented by: Brimonidine Tartrate (Brimonidine Ophth Drops 1 Gtt Bottle 5ml) 1 gtt OU BID [facility] Last Admin: 01/02/21 08:09 Dose: 1 gtt Documented by: Calcium Carbonate/Glycine (Calcium (Oyster Shell) 500 Mg Tablet) 1,000 mg PO QDAY [facility] Last Admin: 01/02/21 08:08 Dose: 1,000 mg Documented by: Docusate Sodium (Docusate Sodium 100 Mg Capsule) 100 mg PO BID [facility] Last Admin: 01/02/21 08:08 Dose: 100 mg Documented by: Enoxaparin Sodium (Enoxaparin 40 Mg/0.4 Ml Syringe) 40 mg SQ DAILY [facility] Last Admin: 01/02/21 08:09 Dose: 40 mg Documented by: Furosemide (Furosemide 40 Mg/4 Ml Vial) 40 mg IV BIDD [facility] Stop: 01/04/21 08:59 Last Admin: 01/02/21 10:18 Dose: 40 mg Documented by: Latanoprost (Latanoprost Ophth Drops 2.5ml Bottle) 1 gtt OU QDAY [facility] Last Admin: 01/02/21 08:11 Dose: Not Given Documented by: Lisinopril (Lisinopril 20 Mg Tablet) 40 mg PO DAILY [facility] Last Admin: 01/02/21 08:08 Dose: 40 mg Documented by: Mirtazapine (Mirtazapine 15 Mg Tablet) 7.5 mg PO [facility] Last Admin: 01/01/21 21:17 Dose: 7.5 mg Documented by: Ondansetron HCl (Ondansetron 4 Mg/2 Ml Vial) 4 mg IV Q6HP PRN PRN Reason: Nausea And Vomiting Senna (Sennosides 1 Tablet) 2 tab PO [facility] Last Admin: 01/01/21 21:17 Dose: 2 tab Documented by: Sodium Chloride (0.9 % Sodium Chloride 10 Ml Syringe) 10 ml IV Q8 [facility] Last Admin: 01/02/21 13:20 Dose: 10 ml Documented by: Timolol Maleate (Timolol 0.5% Ophth Drops Bottle 5ml) 1 gtt OU BID [facility] Last Admin: 01/02/21 08:10 Dose: 1 gtt Documented by: Vitamin D (Vitamin D3 1,000 Unit Tablet) 1,000 unit PO QDAY [facility] Last Admin: 01/02/21 08:08 Dose: 1,000 unit Documented by: A/P Narrative A/P Narrative: A: #Hyponatremia, hypervolemic -Urine Na 20, urine osm 264, TSH normal -bilateral lower extremity edema lt>rt -possibly related to heart failure/AV insufficiency #Acute hypoxic respiratory failure -possible CHF but not much pulmonary edema on CT chest -CT chest w/ contrast neg for central embolus -left lower extremity negative for DVT #Bilateral lower extremity edema #Fall at home, likely mechanical fall (patient does not remember) #Generalized weakness #Hypertension #Osteoporosis #Hx aortic valve regurgitation #Hx of multiple vertebral compression fractures #Hx pelvic fractures #Hx left hip fracture status post ORIF Plan -Sodium and fluid restriction, follow sodium level. -Trial of lasix 40 mg IV x2. -Oxygen supplementation as needed -Pending TTE echo. -Essential home medications. -PT and OT. -Telemetry -DVT PPx: Lovenox SQ -Disposition: Probably SNF CODE STATUS: DNR Time Spent With Patient Time: Total time spent is greater than 50% in coordination of care (as documented) at patient's floor/unit and/or counseling patient: QUALITY Stroke Symptom Onset Unknown: No VTE Deep Vein Thrombosis/Pulmonary Embolism Present on Admission: No
[2021-01-02] MEDS: cefTRIAXone 1 GM VIAL IV SCH (16:36)
[2021-01-02] MEDS: MIRTAZAPINE 15 MG TABLET PO SCH (20:05)
[2021-01-02] MEDS: SENNOSIDES 1 TABLET PO SCH (20:06)
[2021-01-03] MEDS: 0.9 % SODIUM CHLORIDE 10 ML SYRINGE IV SCH ×3 (06:11→21:12)
--- NOTE | 2021-01-03 07:35 | Internal Med Progress Note ---
SUBJECTIVE Subjective Patient information: Note initiated : 01/03/21 at 7:33 am Service Date, if different from initiated Date: [] Patient: Rebeca Mcknight 85 y/o F admitted on 01/01/21 for fall. Chief Complaint: [] Interval history: Ms. Mcknight is a 85 year old female with a history of hypertension, coronary artery disease, aortic valve regurgitation, glaucoma, recurrent falls, history of left intertrochanteric fracture status post ORIF, history of pelvic fracture, history of multiple vertebral compression fractures who presented to the ED after a fall at home. Patient was last discharged from [facility] on 11/28/2020 after being admitted for back pain from a recent fall. Patient also had hyponatremia at that encounter. This time, work-up in the ED included a CT chest abdomen and pelvis and CT cervical spine that did not show any acute fractures. Patient had a sodium level of 121. Patient has a new oxygen requirement. Vitals are otherwise stable, the patient does not appear to be in any respiratory distress. She does have bilateral lower extremity edema. 01/02 Started lasix 40 mg IV x2 today, will monitor response. Hyponatremia could be related to heart failure, TTE report pending. Suspect aortic valve has worsened relative to last available ECHO report in 2014. 01/03 Feeling well. No complaints. Denies cough or shortness of breath. Patient was placed on 8 L oxygen mask last night but is on 1-1/2 L of nasal cannula this morning and titrating down. Labs follow-up with hyponatremia. Review of Systems: denies headache/fever/chills/nausea/vomiting/chest or abdominal pain/cough/dyspnea/diarrhea. Otherwise see above. Constitutional Vitals: Vital Signs Temp Pulse Resp BP Pulse Ox 98.5 F 69 18 160/85 95 01/03/21 07:26 01/03/21 07:26 01/03/21 07:26 01/03/21 07:26 01/03/21 07:26 Period Temp Pulse Resp BP Sys/Feng Pulse Ox Last 24 Hr 97.4 F-98.8 F 69-96 12-20 112-160/66-86 89-95 Intake and Output 01/02/21 01/03/21 01/03/21 21:59 05:59 13:59 Intake Total 400 150 Output Total 1450 300 Balance -1050 -150 Weight 46.947 kg Intake & Output: Intake & Output 01/02/21 01/03/21 01/03/21 21:59 05:59 13:59 Intake Total 400 150 Output Total 1450 300 Balance -1050 -150 Weight 46.947 kg Intake: Oral 400 150 Output: Void Amount 1450 300 Other: Meal Dinner Percent of Meal Consumed 50% Feeding Ability Assist with Tray Set Up Urine Appearance Cloudy Cloudy Urine Color Bright Yellow Dark Yellow Urine Odor Foul Strong Exam: General: Alert, Awake, No acute Distress Eyes/N/T: EOMI, Head/Neck: neck supple, CV: RRR,2/6 SM Pulm: Clear b/l, no wheezing/rhonchi/rales Abd: soft, nontender, +BS x4 Ext: no clubbing/cyanosis, b/l LE 1-2+ edema Neuro: Alert, no focal deficits, moves all extremities, Skin: warm/dry OBJ DATA Labs CBC & Chem 7: 01/01/21 12:57 01/02/21 05:18 Labs: Abnormal Lab Results 01/02/21 01/02/21 01/01/21 05:18 05:18 18:27 MPV Lymph % (Auto) [place] % (Auto) Lymph # (Auto) [place] # (Auto) Sodium 123 L Chloride 92 L Carbon Dioxide 19 L Creatinine 0.5 L Glucose Osmolality 261 L Total Bilirubin Alkaline Phosphatase NT-Pro-B Natriuret Pep 1751.0 H Urine Appearance Hazy A Urine Ketones 5 A Urine Nitrate Pos A Ur Leukocyte Esterase 250 A Urine RBC 4 H Urine WBC 103 H Urine Bacteria Few A Urine Mucus Few A 01/01/21 01/01/21 12:57 12:56 MPV 10.7 H Lymph % (Auto) 11.0 L [place] % (Auto) 12.4 H Lymph # (Auto) 1.07 L [place] # (Auto) 1.20 H Sodium 121 L Chloride 88 L Carbon Dioxide 19 L Creatinine 0.5 L Glucose 115 H Osmolality Total Bilirubin 1.2 H Alkaline Phosphatase 151 H NT-Pro-B Natriuret Pep Urine Appearance Urine Ketones Urine Nitrate Ur Leukocyte Esterase Urine RBC Urine WBC Urine Bacteria Urine Mucus Meds: Medications Acetaminophen (Acetaminophen 160 Mg/5 Ml Oral.Fay) 650 mg PO Q6HP PRN; Protocol PRN Reason: Per Pain Protocol Last Admin: 01/02/21 13:17 Dose: 650 mg Documented by: Brimonidine Tartrate (Brimonidine Ophth Drops 1 Gtt Bottle 5ml) 1 gtt OU BID [facility] Last Admin: 01/02/21 19:31 Dose: 1 gtt Documented by: Calcium Carbonate/Glycine (Calcium (Oyster Shell) 500 Mg Tablet) 1,000 mg PO QDAY [facility] Last Admin: 01/02/21 08:08 Dose: 1,000 mg Documented by: Ceftriaxone Sodium (Ceftriaxone 1 Gm Vial) 1 gm IV DAILY [facility]; Protocol Last Admin: 01/02/21 16:36 Dose: 1 gm Documented by: Docusate Sodium (Docusate Sodium 100 Mg Capsule) 100 mg PO BID [facility] Last Admin: 01/02/21 20:06 Dose: Not Given Documented by: Enoxaparin Sodium (Enoxaparin 40 Mg/0.4 Ml Syringe) 40 mg SQ DAILY [facility] Last Admin: 01/02/21 08:09 Dose: 40 mg Documented by: Furosemide (Furosemide 40 Mg/4 Ml Vial) 40 mg IV BIDD [facility] Stop: 01/04/21 08:59 Last Admin: 01/02/21 16:37 Dose: 40 mg Documented by: Latanoprost (Latanoprost Ophth Drops 2.5ml Bottle) 1 gtt OU QDAY [facility] Last Admin: 01/02/21 08:11 Dose: Not Given Documented by: Lisinopril (Lisinopril 20 Mg Tablet) 40 mg PO DAILY [facility] Last Admin: 01/02/21 08:08 Dose: 40 mg Documented by: Mirtazapine (Mirtazapine 15 Mg Tablet) 7.5 mg PO [facility] Last Admin: 01/02/21 20:05 Dose: 7.5 mg Documented by: Ondansetron HCl (Ondansetron 4 Mg/2 Ml Vial) 4 mg IV Q6HP PRN PRN Reason: Nausea And Vomiting Senna (Sennosides 1 Tablet) 2 tab PO [facility] Last Admin: 01/02/21 20:06 Dose: Not Given Documented by: Sodium Chloride (0.9 % Sodium Chloride 10 Ml Syringe) 10 ml IV Q8 [facility] Last Admin: 01/03/21 06:11 Dose: Not Given Documented by: Timolol Maleate (Timolol 0.5% Ophth Drops Bottle 5ml) 1 gtt OU BID [facility] Last Admin: 01/02/21 20:06 Dose: Not Given Documented by: Vitamin D (Vitamin D3 1,000 Unit Tablet) 1,000 unit PO QDAY [facility] Last Admin: 01/02/21 08:08 Dose: 1,000 unit Documented by: A/P Narrative A/P Narrative: A: #Hyponatremia, hypervolemic -Urine Na 20, urine osm 264, TSH normal -bilateral lower extremity edema lt>rt -possibly related to heart failure/AV insufficiency #Acute hypoxic respiratory failure -possible CHF but not much pulmonary edema on CT chest -CT chest w/ contrast neg for central embolus -left lower extremity negative for DVT -on 1.5L NC, needed more while sleeping last night #Bilateral lower extremity edema: #Fall at home, likely mechanical fall (patient does not remember) #Generalized weakness/deconditioning: #Hypertension: on ACEI #Hx aortic valve regurgitation #Hx of multiple vertebral compression fractures & pelvic fractures & Osteoporosis #Hx left hip fracture status post ORIF Plan -Sodium and fluid restriction, follow sodium level -Trial of lasix 40mg IV. -Oxygen supplementation as needed, wean -f/u CXR -Pending TTE echo. -cont home ACEI -PT and OT -Telemetry -DVT PPx: Lovenox SQ -Disposition: Probably SNF CODE STATUS: DNR Time Spent With Patient Time: Total time spent is greater than 50% in coordination of care (as documented) at patient's floor/unit and/or counseling patient: QUALITY Stroke Symptom Onset Unknown: No VTE Deep Vein Thrombosis/Pulmonary Embolism Present on Admission: No
[2021-01-03] MEDS: BRIMONIDINE OPHTH DROPS 1 GTT BOTTLE 5ML OU SCH ×2 (08:16→19:47)
[2021-01-03] MEDS: cefTRIAXone 1 GM VIAL IV SCH (08:16)
[2021-01-03] MEDS: ENOXAPARIN 40 MG/0.4 ML SYRINGE SQ SCH (08:16)
[2021-01-03] MEDS: LATANOPROST OPHTH DROPS 2.5ML BOTTLE OU SCH (08:16)
[2021-01-03] MEDS: FUROSEMIDE 40 MG/4 ML VIAL IV SCH ×2 (08:16→15:47)
[2021-01-03] MEDS: DOCUSATE SODIUM 100 MG CAPSULE PO SCH ×2 (08:17→21:12)
[2021-01-03] MEDS: CALCIUM (OYSTER SHELL) 500 MG TABLET PO SCH (08:17)
[2021-01-03] MEDS: VITAMIN D3 1,000 UNIT TABLET PO SCH (08:17)
[2021-01-03] MEDS: LISINOPRIL 20 MG TABLET PO SCH (08:17)
[2021-01-03] MEDS: TIMOLOL 0.5% OPHTH DROPS BOTTLE 5ML OU SCH ×2 (08:47→21:32)
[2021-01-03 09:06] LABS: ALT/SGPT 10 U/L (<40); AST/SGOT 21 U/L (<32); Albumin 3.9 gm/dL (3.2-5.2); Albumin/Globulin Ratio 1.4 (1.0-2.3); Alkaline Phosphatase 137 U/L (39-117); Bilirubin,Direct < 0.2 mg/dL (0-0.3); Bilirubin,Total 0.7 mg/dL (0.1-1.0); Blood Urea Nitrogen 11 mg/dL (8-23); Calcium 9.3 mg/dL (8.6-10.4); Carbon Dioxide 21 mmol/L (22-30); Chloride 89 mmol/L (96-108); Globulin 2.8 gm/dL (2.2-3.7); Glomerular Filtration Rate 88; Glucose 100 mg/dL (70-105); Lactate Dehydrogenase 342 U/L (135-225); Phosphorous 3.1 mg/dL (2.5-4.5); Triglycerides 65 mg/dL (<150); Uric Acid 3.8 mg/dL (2.5-8.0)
--- NOTE | 2021-01-03 09:13 | XRay Report ---
CLINICAL INFORMATION: hypoxia COMPARISON: 01/12/2017 FINDINGS: The heart is markedly enlarged - increased from previous exam. Diffuse thoracic aortic ectasia shows modest increase in diameter. The remaining mediastinum and pulmonary vessels are unremarkable. Mild right basilar atelectasis noted. No definite effusion IMPRESSION: Marked cardiomegaly - increasing. No evidence of CHF. Minor right basilar atelectasis. Interpreted and Authenticated by: Clay Marquez 01/03/21
[2021-01-03] MEDS: SODIUM CHLORIDE 1 GM TABLET PO SCH ×2 (10:27→21:11)
[2021-01-03] MEDS: ACETAMINOPHEN 160 MG/5 ML ORAL.SOL PO PRN ×2 (11:12→21:30)
[2021-01-03] MEDS: MIRTAZAPINE 15 MG TABLET PO SCH (21:11)
[2021-01-03] MEDS: SENNOSIDES 1 TABLET PO SCH (21:12)
[2021-01-04] MEDS: 0.9 % SODIUM CHLORIDE 10 ML SYRINGE IV SCH (05:39)
[2021-01-04 06:52] LABS: Blood Urea Nitrogen 14 mg/dL (8-23); Calcium 9.1 mg/dL (8.6-10.4); Carbon Dioxide 23 mmol/L (22-30); Chloride 95 mmol/L (96-108); Glomerular Filtration Rate 83; Glucose 93 mg/dL (70-105)
--- NOTE | 2021-01-04 07:36 | Internal Med Progress Note ---
SUBJECTIVE Subjective Patient information: Note initiated : 01/04/21 at 7:33 am Service Date, if different from initiated Date: [] Patient: Rebeca Mcknight 85 y/o F admitted on 01/01/21 for fall. Chief Complaint: [] Interval history: Ms. Mcknight is a 85 year old female with a history of hypertension, coronary artery disease, aortic valve regurgitation, glaucoma, recurrent falls, history of left intertrochanteric fracture status post ORIF, history of pelvic fracture, history of multiple vertebral compression fractures who presented to the ED after a fall at home. Patient was last discharged from [facility] on 11/28/2020 after being admitted for back pain from a recent fall. Patient also had hyponatremia at that encounter. This time, work-up in the ED included a CT chest abdomen and pelvis and CT cervical spine that did not show any acute fractures. Patient had a sodium level of 121. Patient has a new oxygen requirement. Vitals are otherwise stable, the patient does not appear to be in any respiratory distress. She does have bilateral lower extremity edema. 01/02 Started lasix 40 mg IV x2 today, will monitor response. Hyponatremia could be related to heart failure, TTE report pending. Suspect aortic valve has worsened relative to last available ECHO report in 2014. 01/03 Feeling well. No complaints. Denies cough or shortness of breath. Patient was placed on 8 L oxygen mask last night but is on 1-1/2 L of nasal cannula this morning and titrating down. Labs follow-up with hyponatremia. 01/04 Patient feeling better. On room air. His sodium improved. Awaiting placement. Review of Systems: denies headache/fever/chills/nausea/vomiting/chest or abdominal pain/cough/dyspnea/diarrhea. Otherwise see above. Constitutional Vitals: Vital Signs Temp Pulse Resp BP Pulse Ox 98.7 F 89 16 116/70 94 01/04/21 07:22 01/04/21 07:22 01/04/21 07:22 01/04/21 07:22 01/04/21 07:22 Period Temp Pulse Resp BP Sys/Feng Pulse Ox Last 24 Hr 97.2 F-98.7 F 76-112 16-20 105-141/70-95 90-99 Intake and Output 01/03/21 01/04/21 01/04/21 21:59 05:59 13:59 Intake Total 360 550 Output Total 250 Balance 360 300 Weight 44.815 kg Intake & Output: Intake & Output 01/03/21 01/04/21 01/04/21 21:59 05:59 13:59 Intake Total 360 550 Output Total 250 Balance 360 300 Weight 44.815 kg Intake: Oral 360 550 Output: Void Amount 250 Other: Meal Dinner Percent of Meal Consumed 50% Urine Appearance Cloudy Urine Color Bright Yellow Urine Odor Normal Stool Size Large Stool Color Brown Dark Red Blood Stool Consistency Dry and Hard [place] # Voids 1 Exam: General: Alert, Awake, No acute Distress Eyes/N/T: EOMI, Head/Neck: neck supple, CV: RRR,2/6 SM Pulm: Clear b/l, no wheezing/rhonchi/rales Abd: soft, nontender, +BS x4 Ext: no clubbing/cyanosis, b/l LE edema improved Neuro: Alert, no focal deficits, moves all extremities, Skin: warm/dry OBJ DATA Labs CBC & Chem 7: 01/01/21 12:57 01/04/21 05:17 Labs: Abnormal Lab Results 01/04/21 01/03/21 01/03/21 05:17 16:16 07:47 MPV Lymph % (Auto) [place] % (Auto) Lymph # (Auto) [place] # (Auto) Sodium 132 L 127 L 123 L Chloride 95 L 89 L Carbon Dioxide 21 L Creatinine 0.5 L Glucose Osmolality Total Bilirubin Alkaline Phosphatase 137 H Lactate Dehydrogenase 342 H NT-Pro-B Natriuret Pep 1504.0 H Urine Appearance Urine Ketones Urine Nitrate Ur Leukocyte Esterase Urine RBC Urine WBC Urine Bacteria Urine Mucus 01/02/21 01/02/21 01/01/21 05:18 05:18 18:27 MPV Lymph % (Auto) [place] % (Auto) Lymph # (Auto) [place] # (Auto) Sodium 123 L Chloride 92 L Carbon Dioxide 19 L Creatinine 0.5 L Glucose Osmolality 261 L Total Bilirubin Alkaline Phosphatase Lactate Dehydrogenase NT-Pro-B Natriuret Pep 1751.0 H Urine Appearance Hazy A Urine Ketones 5 A Urine Nitrate Pos A Ur Leukocyte Esterase 250 A Urine RBC 4 H Urine WBC 103 H Urine Bacteria Few A Urine Mucus Few A 01/01/21 01/01/21 12:57 12:56 MPV 10.7 H Lymph % (Auto) 11.0 L [place] % (Auto) 12.4 H Lymph # (Auto) 1.07 L [place] # (Auto) 1.20 H Sodium 121 L Chloride 88 L Carbon Dioxide 19 L Creatinine 0.5 L Glucose 115 H Osmolality Total Bilirubin 1.2 H Alkaline Phosphatase 151 H Lactate Dehydrogenase NT-Pro-B Natriuret Pep Urine Appearance Urine Ketones Urine Nitrate Ur Leukocyte Esterase Urine RBC Urine WBC Urine Bacteria Urine Mucus Meds: Medications Acetaminophen (Acetaminophen 160 Mg/5 Ml Oral.Fay) 650 mg PO Q6HP PRN; Protocol PRN Reason: Per Pain Protocol Last Admin: 01/03/21 21:30 Dose: 650 mg Documented by: Brimonidine Tartrate (Brimonidine Ophth Drops 1 Gtt Bottle 5ml) 1 gtt OU BID [facility] Last Admin: 01/03/21 19:47 Dose: 1 gtt Documented by: Calcium Carbonate/Glycine (Calcium (Oyster Shell) 500 Mg Tablet) 1,000 mg PO QDAY [facility] Last Admin: 01/03/21 08:17 Dose: 1,000 mg Documented by: Ceftriaxone Sodium (Ceftriaxone 1 Gm Vial) 1 gm IV DAILY [facility]; Protocol Last Admin: 01/03/21 08:16 Dose: 1 gm Documented by: Docusate Sodium (Docusate Sodium 100 Mg Capsule) 100 mg PO BID [facility] Last Admin: 01/03/21 21:12 Dose: Not Given Documented by: Enoxaparin Sodium (Enoxaparin 40 Mg/0.4 Ml Syringe) 40 mg SQ DAILY [facility] Last Admin: 01/03/21 08:16 Dose: 40 mg Documented by: Latanoprost (Latanoprost Ophth Drops 2.5ml Bottle) 1 gtt OU QDAY [facility] Last Admin: 01/03/21 08:16 Dose: 1 gtt Documented by: Lisinopril (Lisinopril 20 Mg Tablet) 40 mg PO DAILY [facility] Last Admin: 01/03/21 08:17 Dose: 40 mg Documented by: Mirtazapine (Mirtazapine 15 Mg Tablet) 7.5 mg PO HS [facility] Last Admin: 01/03/21 21:11 Dose: 7.5 mg Documented by: Ondansetron HCl (Ondansetron 4 Mg/2 Ml Vial) 4 mg IV Q6HP PRN PRN Reason: Nausea And Vomiting Senna (Sennosides 1 Tablet) 2 tab PO HS [facility] Last Admin: 01/03/21 21:12 Dose: Not Given Documented by: Sodium Chloride (0.9 % Sodium Chloride 10 Ml Syringe) 10 ml IV Q8 [facility] Last Admin: 01/04/21 05:39 Dose: 10 ml Documented by: Sodium Chloride (Sodium Chloride 1 Gm Tablet) 2 gm PO BID [facility] Last Admin: 01/03/21 21:11 Dose: 2 gm Documented by: Timolol Maleate (Timolol 0.5% Ophth Drops Bottle 5ml) 1 gtt OU BID [facility] Last Admin: 01/03/21 21:32 Dose: Not Given Documented by: Vitamin D (Vitamin D3 1,000 Unit Tablet) 1,000 unit PO QDAY [facility] Last Admin: 01/03/21 08:17 Dose: 1,000 unit Documented by: A/P Narrative A/P Narrative: A: #Hyponatremia, hypervolemic: improved -Urine Na 20, urine osm 264, TSH normal -bilateral lower extremity edema lt>rt -possibly related to heart failure/AV insufficiency. echo good EF, mod MR/AR #Acute hypoxic respiratory failure -possible CHF but not much pulmonary edema on CT chest -CT chest w/ contrast neg for central embolus -left lower extremity negative for DVT -on room air while awake, #Bilateral lower extremity edema: #Fall at home, likely mechanical fall (patient does not remember) #Generalized weakness/deconditioning: #Hypertension: on ACEI #Hx aortic valve regurgitation #Hx of multiple vertebral compression fractures & pelvic fractures & Osteoporosis #Hx left hip fracture status post ORIF #UTI(e. coli) Plan -Sodium and fluid restriction, follow sodium level -s/p Trial of lasix 40mg IV -Oxygen supplementation as needed -cont home ACEI -PT and OT -day 3 of rocephin today -DVT PPx: Lovenox SQ -Disposition: Probably SNF CODE STATUS: DNR Time Spent With Patient Time: Total time spent is greater than 50% in coordination of care (as documented) at patient's floor/unit and/or counseling patient: QUALITY Stroke Symptom Onset Unknown: No VTE Deep Vein Thrombosis/Pulmonary Embolism Present on Admission: No
[2021-01-04] MEDS: cefTRIAXone 1 GM VIAL IV SCH (08:17)
[2021-01-04] MEDS: ENOXAPARIN 40 MG/0.4 ML SYRINGE SQ SCH (08:17)
[2021-01-04] MEDS: SODIUM CHLORIDE 1 GM TABLET PO SCH (08:17)
[2021-01-04] MEDS: CALCIUM (OYSTER SHELL) 500 MG TABLET PO SCH (08:18)
[2021-01-04] MEDS: LISINOPRIL 20 MG TABLET PO SCH (08:18)
[2021-01-04] MEDS: VITAMIN D3 1,000 UNIT TABLET PO SCH (08:18)
[2021-01-04] MEDS: DOCUSATE SODIUM 100 MG CAPSULE PO SCH (08:18)
[2021-01-04] MEDS: LATANOPROST OPHTH DROPS 2.5ML BOTTLE OU SCH (08:18)
[2021-01-04] MEDS: BRIMONIDINE OPHTH DROPS 1 GTT BOTTLE 5ML OU SCH (08:19)
[2021-01-04] MEDS: ACETAMINOPHEN 160 MG/5 ML ORAL.SOL PO PRN (08:56)
[2021-01-04] MEDS ORDERED: PHENobarb/HYOSCY/ATROPINE/SCOP 1 DOSE BOTTLE PO ONE (08:57)
[2021-01-04] MEDS: TIMOLOL 0.5% OPHTH DROPS BOTTLE 5ML OU SCH (09:00)
[2021-01-04] MEDS ORDERED: METHOCARBAMOL 500 MG TABLET PO PRN (09:45)
== END 2021-01-04 11:45 | DRG 640 ==
LOC: ED 12:21 → MEDSUR 18:14
PROVIDERS: ADMIT Internal Medicine; ATTEND Internal Medicine